=== PATIENT | male | born 1965 | race Caucasian/White ===

== ENCOUNTER 2017-12-02 00:30 | Inpatient (IN) | payer MEDICARE, OTHER ==
[2017-12-02 03:22] LABS: ADD MAN DIFF? NO
[2017-12-02 03:29] LABS: ABNORMAL IP MESSAGE 1; BASOPHIL # 0.1 10^3/ul (0.0-0.1); BASOPHILS % 0.6 % (0.0-2.0); EOSINOPHILS # 0.3 10^3/ul (0.0-0.5); HEMATOCRIT 28.1 % (42.0-52.0); LYMPHOCYTES # 1.3 10^3/ul (0.8-2.9); LYMPHOCYTES % 16.9 % (15.0-51.0); MEAN CORPUSCULAR HEMOGLOBIN 23.3 pg (29.0-33.0); MEAN CORPUSCULAR HGB CONC 28.5 g/dl (32.0-37.0); MEAN CORPUSCULAR VOLUME 81.9 fl (82.0-101.0); MEAN PLATELET VOLUME 11.8 fl (7.4-10.4); MONOCYTE # 0.8 10^3/ul (0.3-0.9); MONOCYTES % 10.1 % (0.0-11.0); NEUTROPHIL # 5.2 10^3/ul (1.6-7.5); NEUTROPHILS % 66.9 % (39.0-77.0); NUCLEATED RED BLOOD CELLS # 0.1 10^3/ul (0.0-0.0); NUCLEATED RED BLOOD CELLS% 1.3 /100WBC (0.0-0.0); PLATELET COUNT 134 10^3/UL (140-415); POSITIVE DIFF @See below; RED BLOOD COUNT 3.43 10^6/ul (4.70-6.10); RED CELL DISTRIBUTION WIDTH 19.7 % (11.5-14.5)
[2017-12-02 03:29] LABS: WHITE BLOOD COUNT 7.8 10^3/ul (4.8-10.8)
[2017-12-02 03:43] LABS: ALANINE AMINOTRANSFERASE 34 IU/L (13-69); ALBUMIN 3.4 g/dl (3.3-4.9); ALBUMIN/GLOBULIN RATIO 0.85; ALKALINE PHOSPHATASE 186 IU/L (42-121); ANION GAP 16 (8-16); ASPARTATE AMINO TRANSFERASE 35 IU/L (15-46); BILIRUBIN,INDIRECT 0.7 mg/dl (0-1.1); BILIRUBIN,TOTAL 0.7 mg/dl (0.2-1.3); BLOOD UREA NITROGEN 34 mg/dl (7-20); CALCIUM 8.3 mg/dl (8.4-10.2); CARBON DIOXIDE 30 mmol/L (21-31); CHLORIDE 112 mmol/L (97-110); CREATININE 1.26 mg/dl (0.61-1.24); GLUCOSE 107 mg/dl (70-220); POTASSIUM 4.3 mmol/L (3.5-5.1); SODIUM 154 mmol/L (135-144); TOTAL PROTEIN 7.4 g/dl (6.1-8.1)
[2017-12-02 03:54] LABS: B-TYPE NATRIURETIC PEPTIDE 4240 PG/ML (0-125); TROPONIN-I 0.046 ng/ml (0.00-0.12)
[2017-12-02] MEDS ORDERED: ONDANSETRON 4 MG INJ IV (06:30)
[2017-12-02] MEDS ORDERED: ACETAMINOPHEN 325 MG TAB PO (06:30)
[2017-12-02] MEDS ORDERED: ALBUMIN HUMAN 25% 100 ML IV (06:30)
[2017-12-02] MEDS ORDERED: morphine 2 MG INJ IV (06:30)
[2017-12-02] MEDS ORDERED: NACL 0.9% 3 ML SYG IV (06:30)
[2017-12-02 07:43] LABS: CREATINE KINASE 44 IU/L (23-200)
[2017-12-02 07:56] LABS: CK INDEX 2.6; TROPONIN-I 0.053 ng/ml (0.00-0.12)
[2017-12-02 08:02] LABS: CK-MB 1.16 ng/ml (0.0-2.4)
[2017-12-02] MEDS: ALBUMIN HUMAN 25% 100 ML IV (08:14)
[2017-12-02 08:57] LABS: FOLATE > 20.0 ng/ml (2.8-20.0)
[2017-12-02 09:00] LABS: OSMOLALITY 314 mOsm/kg (280-295)
[2017-12-02 09:15] LABS: IRON 35 ug/dl (35-150)
[2017-12-02 09:25] LABS: % IRON SATURATION 10 % SAT (22-52); TOTAL IRON BINDING CAPACITY 364 ug/dl (241-421)
[2017-12-02 09:44] LABS: IRON 33 ug/dl (35-150)
[2017-12-02 09:53] LABS: % IRON SATURATION 9 % SAT (22-52); TOTAL IRON BINDING CAPACITY 367 ug/dl (241-421)
[2017-12-02] MEDS ORDERED: DEXTROSE 50% 50 ML SYRINGE IV ×2 (10:00)
[2017-12-02] MEDS ORDERED: GLUCOSE GEL 15 GRAM TUBE PO ×2 (10:00)
[2017-12-02] MEDS ORDERED: GLUCOSE GEL 15 GRAM TUBE BUCCAL (10:00)
[2017-12-02] MEDS ORDERED: GLUCAGON 1 MG INJ IM (10:00)
[2017-12-02] MEDS ORDERED: hydrALAzine 20 MG INJ IV (10:00)
[2017-12-02] MEDS ORDERED: FUROSEMIDE 40 MG INJ IV (10:00)
[2017-12-02 10:19] LABS: FERRITIN 27.3 ng/ml (11.1-264.0)
[2017-12-02] MEDS: FUROSEMIDE 40 MG INJ IV ×2 (10:30→17:28)
[2017-12-02 10:32] LABS: ANION GAP 15 (8-16); BLOOD UREA NITROGEN 34 mg/dl (7-20); CALCIUM 8.3 mg/dl (8.4-10.2); CARBON DIOXIDE 29 mmol/L (21-31); CHLORIDE 113 mmol/L (97-110); CREATININE 1.11 mg/dl (0.61-1.24); GLUCOSE 112 mg/dl (70-220); POTASSIUM 4.2 mmol/L (3.5-5.1); SODIUM 153 mmol/L (135-144)
[2017-12-02 11:05] LABS: ADD UMIC YES; UR ASCORBIC ACID 40 mg/dL (NEGATIVE); UR BACTERIA MODERATE /HPF (NONE SEEN); UR BILIRUBIN (Dip) NEGATIVE (NEGATIVE); UR BLOOD (Dip) NEGATIVE (NEGATIVE); UR CLARITY SLIGHTLY CLOUDY (CLEAR); UR COLOR AMBER (YELLOW); UR GLUCOSE (Dip) NEGATIVE (NEGATIVE); UR KETONES (Dip) NEGATIVE (NEGATIVE); UR LEUKOCYTE ESTERASE (Dip) TRACE Leu/ul (NEGATIVE); UR MUCUS MANY /HPF (NONE SEEN); UR NITRITE (Dip) NEGATIVE (NEGATIVE); UR RBC 3 /HPF (0-5); UR SPECIFIC GRAVITY (Dip) 1.028 (1.003-1.030); UR TOTAL PROTEIN (Dip) 2+ mg/dl (NEGATIVE); UR UROBILINOGEN (Dip) 2+ mg/dL (NEGATIVE); UR WBC 12 /HPF (0-5)
[2017-12-02 11:25] LABS: OSMOLALITY,URINE 913 mOsm/kg (250-1200)
[2017-12-02 11:28] LABS: CREATININE,URINE RANDOM 195.18 mg/dl (20-370)
[2017-12-02 11:28] LABS: SODIUM,URINE RANDOM 66 mmol/L (30-90)
[2017-12-02 12:01] LABS: B-TYPE NATRIURETIC PEPTIDE 4060 PG/ML (0-125)
[2017-12-02] MEDS: APIXABAN 5 MG TABLET PO ×2 (12:24→20:38)
[2017-12-02] MEDS: GABAPENTIN 300 MG CAP PO ×2 (12:24→20:36)
[2017-12-02] MEDS: INSULIN ASPART [NOVOLOG] 3 ML PEN SC ×5 (12:26→20:51)
[2017-12-02] MEDS: METOLAZONE 5 MG TAB PO (13:02)
[2017-12-02 15:23] LABS: ANION GAP 15 (8-16); BLOOD UREA NITROGEN 29 mg/dl (7-20); CALCIUM 8.7 mg/dl (8.4-10.2); CARBON DIOXIDE 33 mmol/L (21-31); CHLORIDE 107 mmol/L (97-110); CREATINE KINASE 44 IU/L (23-200); CREATININE 1.02 mg/dl (0.61-1.24); GLUCOSE 133 mg/dl (70-220); POTASSIUM 4.4 mmol/L (3.5-5.1); SODIUM 151 mmol/L (135-144)
[2017-12-02 15:33] LABS: ADD UMIC YES; UR ASCORBIC ACID 40 mg/dL (NEGATIVE); UR BACTERIA FEW /HPF (NONE SEEN); UR BILIRUBIN (Dip) NEGATIVE (NEGATIVE); UR BLOOD (Dip) NEGATIVE (NEGATIVE); UR CLARITY SLIGHTLY CLOUDY (CLEAR); UR COLOR AMBER (YELLOW); UR GLUCOSE (Dip) NEGATIVE (NEGATIVE); UR KETONES (Dip) NEGATIVE (NEGATIVE); UR LEUKOCYTE ESTERASE (Dip) TRACE Leu/ul (NEGATIVE); UR MUCUS MANY /HPF (NONE SEEN); UR NITRITE (Dip) NEGATIVE (NEGATIVE); UR RBC 1 /HPF (0-5); UR SPECIFIC GRAVITY (Dip) 1.029 (1.003-1.030); UR TOTAL PROTEIN (Dip) 2+ mg/dl (NEGATIVE); UR UROBILINOGEN (Dip) 2+ mg/dL (NEGATIVE); UR WBC 13 /HPF (0-5)
[2017-12-02 15:35] LABS: CK INDEX 3.1
[2017-12-02 15:37] LABS: CK-MB 1.37 ng/ml (0.0-2.4)
[2017-12-02] MEDS ORDERED: METOPROLOL 5 MG INJ IV (17:00)
[2017-12-02] MEDS: DIGOXIN 500 MCG INJ IV (17:28)
[2017-12-02 18:36] LABS: TROPONIN-I 0.055 ng/ml (0.00-0.12)
[2017-12-02] MEDS: INSULIN GLARGINE [LANtus] 3 ML PEN SC (20:00)
[2017-12-02] MEDS: METOPROLOL (XL) 50 MG TAB PO (20:37)
[2017-12-02] MEDS: TAMSULOSIN (SR) 0.4 MG CAP PO (22:41)
[2017-12-02] MEDS: ATORVASTATIN 80 MG TAB PO (22:41)
[2017-12-03] MEDS: ACCU-CHEK XX (01:12)
[2017-12-03] MEDS: DIGOXIN 500 MCG INJ IV (01:26)
[2017-12-03 02:28] LABS: TROPONIN-I 0.056 ng/ml (0.00-0.12)
[2017-12-03] MEDS: FUROSEMIDE 40 MG INJ IV ×2 (05:53→17:50)
[2017-12-03] MEDS: INSULIN ASPART [NOVOLOG] 3 ML PEN SC ×7 (07:27→20:43)
[2017-12-03 08:16] LABS: ADD MAN DIFF? NO
[2017-12-03 08:29] LABS: BASOPHIL # 0.1 10^3/ul (0.0-0.1); BASOPHILS % 0.8 % (0.0-2.0); EOSINOPHILS # 0.4 10^3/ul (0.0-0.5); HEMATOCRIT 26.1 % (42.0-52.0); HEMOGLOBIN 7.7 g/dl (14.0-18.0); LYMPHOCYTES # 1.3 10^3/ul (0.8-2.9); LYMPHOCYTES % 17.8 % (15.0-51.0); MEAN CORPUSCULAR HEMOGLOBIN 23.5 pg (29.0-33.0); MEAN CORPUSCULAR HGB CONC 29.5 g/dl (32.0-37.0); MEAN CORPUSCULAR VOLUME 79.8 fl (82.0-101.0); MEAN PLATELET VOLUME 11.9 fl (7.4-10.4); MONOCYTE # 0.6 10^3/ul (0.3-0.9); MONOCYTES % 8.3 % (0.0-11.0); NEUTROPHILS % 67.3 % (39.0-77.0); NUCLEATED RED BLOOD CELLS # 0.1 10^3/ul (0.0-0.0); NUCLEATED RED BLOOD CELLS% 0.7 /100WBC (0.0-0.0); PLATELET COUNT 137 10^3/UL (140-415); RED BLOOD COUNT 3.27 10^6/ul (4.70-6.10); RED CELL DISTRIBUTION WIDTH 19.9 % (11.5-14.5)
[2017-12-03 08:29] LABS: WHITE BLOOD COUNT 7.5 10^3/ul (4.8-10.8)
[2017-12-03 08:37] LABS: HEMOGLOBIN A1C 8.8 % (0-5.9)
[2017-12-03 08:44] LABS: ALANINE AMINOTRANSFERASE 34 IU/L (13-69); ALBUMIN 3.5 g/dl (3.3-4.9); ALKALINE PHOSPHATASE 172 IU/L (42-121); ANION GAP 14 (8-16); ASPARTATE AMINO TRANSFERASE 33 IU/L (15-46); BLOOD UREA NITROGEN 27 mg/dl (7-20); CALCIUM 8.9 mg/dl (8.4-10.2); CARBON DIOXIDE 34 mmol/L (21-31); CHLORIDE 102 mmol/L (97-110); GLUCOSE 153 mg/dl (70-220); MAGNESIUM 2.1 mg/dl (1.7-2.5); POTASSIUM 4.1 mmol/L (3.5-5.1); SODIUM 146 mmol/L (135-144)
[2017-12-03 08:46] LABS: CHOL/HDL RATIO 7.1 RATIO; HDL CHOLESTEROL 17 mg/dl (28-71); LDL CHOLESTEROL,CALCULATED 81 mg/dl; TRIGLYCERIDES 115 mg/dl (0-149)
[2017-12-03 08:46] LABS: CHOLESTEROL 121 mg/dl (100-200)
[2017-12-03 08:57] LABS: FREE T4 (FREE THYROXINE) 1.17 ng/dl (0.64-1.79)
[2017-12-03] MEDS ORDERED: METOPROLOL (XL) 50 MG TAB PO (09:00)
[2017-12-03] MEDS ORDERED: ASPIRIN (EC) 81 MG TAB PO (09:00)
[2017-12-03] MEDS: MULTIVITAMINS THERAPEUTIC TAB PO (09:05)
[2017-12-03] MEDS: GABAPENTIN 300 MG CAP PO ×4 (09:05→20:37)
[2017-12-03] MEDS: METOPROLOL (XL) 50 MG TAB PO ×2 (09:06→20:39)
[2017-12-03] MEDS: CLOPIDOGREL 75 MG TAB PO (09:06)
[2017-12-03] MEDS: ISOSORBIDE MONONITRATE(SR)30 MG TAB PO (09:06)
[2017-12-03] MEDS: APIXABAN 5 MG TABLET PO ×2 (09:06→20:37)
[2017-12-03] MEDS: AMLODIPINE 10 MG TAB PO (09:07)
[2017-12-03 15:07] LABS: CREATININE, RANDOM URINE 211 mg/dL (20-370); MICROALBUMIN 56.1 mg/dL; MICROALBUMIN/CREATININE RATIO 266 (<30)
[2017-12-03] MEDS: SOD FERRIC GLUC COMPLX 125 MG in SOD CHLORIDE 0.9% 100 ML IVPB (17:45)
[2017-12-03] MEDS: CEFTRIAXONE 1 GM/50 ML (PMX) 50 ML IVPB (18:44)
[2017-12-03] MEDS: ATORVASTATIN 80 MG TAB PO (20:37)
[2017-12-03] MEDS: TAMSULOSIN (SR) 0.4 MG CAP PO (20:37)
[2017-12-03] MEDS: INSULIN GLARGINE [LANtus] 3 ML PEN SC (20:43)
[2017-12-03] MEDS ORDERED: ALBUMIN HUMAN 25% 100 ML IV (23:30)
[2017-12-04] MEDS: ACCU-CHEK XX (01:21)
[2017-12-04] MEDS: BENZONATATE 100 MG CAP PO (01:23)
[2017-12-04] MEDS: FUROSEMIDE 40 MG INJ IV ×2 (05:28→17:12)
[2017-12-04] MEDS: INSULIN ASPART [NOVOLOG] 3 ML PEN SC ×7 (08:32→21:23)
[2017-12-04] MEDS: APIXABAN 5 MG TABLET PO ×2 (08:33→21:15)
[2017-12-04] MEDS: CLOPIDOGREL 75 MG TAB PO (08:34)
[2017-12-04] MEDS: MULTIVITAMINS THERAPEUTIC TAB PO (08:34)
[2017-12-04] MEDS: GABAPENTIN 300 MG CAP PO ×3 (08:34→21:15)
[2017-12-04] MEDS: METOPROLOL (XL) 50 MG TAB PO ×2 (08:34→21:17)
[2017-12-04] MEDS: AMLODIPINE 5 MG TAB PO (08:34)
[2017-12-04 09:04] LABS: ADD MAN DIFF? NO
[2017-12-04 09:08] LABS: WHITE BLOOD COUNT 7.8 10^3/ul (4.8-10.8)
[2017-12-04 09:08] LABS: BASOPHIL # 0.1 10^3/ul (0.0-0.1); EOSINOPHILS # 0.3 10^3/ul (0.0-0.5); EOSINOPHILS % 3.8 % (0.0-7.0); HEMOGLOBIN 8.2 g/dl (14.0-18.0); LYMPHOCYTES # 1.9 10^3/ul (0.8-2.9); LYMPHOCYTES % 24.2 % (15.0-51.0); MEAN CORPUSCULAR HGB CONC 30.4 g/dl (32.0-37.0); MEAN CORPUSCULAR VOLUME 78.9 fl (82.0-101.0); MEAN PLATELET VOLUME 11.1 fl (7.4-10.4); MONOCYTE # 0.6 10^3/ul (0.3-0.9); MONOCYTES % 7.7 % (0.0-11.0); NEUTROPHIL # 4.9 10^3/ul (1.6-7.5); NEUTROPHILS % 62.2 % (39.0-77.0); NUCLEATED RED BLOOD CELLS% 0.5 /100WBC (0.0-0.0); PLATELET COUNT 150 10^3/UL (140-415); RED BLOOD COUNT 3.42 10^6/ul (4.70-6.10)
[2017-12-04 09:27] LABS: PHOSPHORUS 4.8 mg/dl (2.5-4.9)
[2017-12-04 09:35] LABS: ANION GAP 16 (8-16); BLOOD UREA NITROGEN 31 mg/dl (7-20); CALCIUM 9.4 mg/dl (8.4-10.2); CARBON DIOXIDE 34 mmol/L (21-31); CHLORIDE 100 mmol/L (97-110); CREATININE 1.09 mg/dl (0.61-1.24); GLUCOSE 190 mg/dl (70-220); POTASSIUM 3.9 mmol/L (3.5-5.1); SODIUM 146 mmol/L (135-144)
[2017-12-04] MEDS: CEFTRIAXONE 1 GM/50 ML (PMX) 50 ML IVPB (16:22)
[2017-12-04] MEDS: SOD FERRIC GLUC COMPLX 125 MG in SOD CHLORIDE 0.9% 100 ML IVPB (17:12)
[2017-12-04] MEDS: INSULIN GLARGINE [LANtus] 3 ML PEN SC (21:14)
[2017-12-04] MEDS: TAMSULOSIN (SR) 0.4 MG CAP PO (21:15)
[2017-12-04] MEDS: ATORVASTATIN 80 MG TAB PO (21:15)
[2017-12-05] MEDS: ACCU-CHEK XX (02:13)
[2017-12-05] MEDS: FUROSEMIDE 40 MG INJ IV ×2 (05:11→16:54)
[2017-12-05 07:26] LABS: ADD MAN DIFF? NO
[2017-12-05 07:37] LABS: WHITE BLOOD COUNT 7.3 10^3/ul (4.8-10.8)
[2017-12-05 07:37] LABS: BASOPHIL # 0.1 10^3/ul (0.0-0.1); BASOPHILS % 0.8 % (0.0-2.0); EOSINOPHILS # 0.2 10^3/ul (0.0-0.5); EOSINOPHILS % 2.6 % (0.0-7.0); HEMATOCRIT 26.8 % (42.0-52.0); LYMPHOCYTES # 1.2 10^3/ul (0.8-2.9); LYMPHOCYTES % 16.4 % (15.0-51.0); MEAN CORPUSCULAR HEMOGLOBIN 23.8 pg (29.0-33.0); MEAN CORPUSCULAR HGB CONC 29.9 g/dl (32.0-37.0); MEAN CORPUSCULAR VOLUME 79.8 fl (82.0-101.0); MEAN PLATELET VOLUME 12.3 fl (7.4-10.4); MONOCYTE # 0.7 10^3/ul (0.3-0.9); MONOCYTES % 8.9 % (0.0-11.0); NEUTROPHIL # 5.1 10^3/ul (1.6-7.5); NEUTROPHILS % 69.9 % (39.0-77.0); NUCLEATED RED BLOOD CELLS% 0.5 /100WBC (0.0-0.0); PLATELET COUNT 142 10^3/UL (140-415); RED BLOOD COUNT 3.36 10^6/ul (4.70-6.10); RED CELL DISTRIBUTION WIDTH 20.1 % (11.5-14.5)
[2017-12-05 07:53] LABS: ANION GAP 13 (8-16); BLOOD UREA NITROGEN 34 mg/dl (7-20); CALCIUM 9.4 mg/dl (8.4-10.2); CARBON DIOXIDE 36 mmol/L (21-31); CHLORIDE 99 mmol/L (97-110); CREATININE 1.25 mg/dl (0.61-1.24); GLUCOSE 293 mg/dl (70-220); MAGNESIUM 1.8 mg/dl (1.7-2.5); PHOSPHORUS 4.4 mg/dl (2.5-4.9); SODIUM 144 mmol/L (135-144)
[2017-12-05] MEDS: MULTIVITAMINS THERAPEUTIC TAB PO (08:11)
[2017-12-05] MEDS: GABAPENTIN 300 MG CAP PO ×3 (08:11→21:41)
[2017-12-05] MEDS: APIXABAN 5 MG TABLET PO ×2 (08:11→21:41)
[2017-12-05] MEDS: BENAZEPRIL 10 MG TAB PO (08:11)
[2017-12-05] MEDS: CLOPIDOGREL 75 MG TAB PO (08:11)
[2017-12-05] MEDS: METOPROLOL (XL) 50 MG TAB PO ×2 (08:11→21:42)
[2017-12-05] MEDS: INSULIN ASPART [NOVOLOG] 3 ML PEN SC ×7 (08:12→21:45)
[2017-12-05] MEDS: CEFTRIAXONE 1 GM/50 ML (PMX) 50 ML IVPB (16:08)
[2017-12-05] MEDS: MAGNESIUM SULFATE 2 GM/50 ML 50 ML IVPB (16:46)
[2017-12-05] MEDS: SOD FERRIC GLUC COMPLX 125 MG in SOD CHLORIDE 0.9% 100 ML IVPB (17:00)
[2017-12-05] MEDS: ATORVASTATIN 80 MG TAB PO (21:41)
[2017-12-05] MEDS: TAMSULOSIN (SR) 0.4 MG CAP PO (21:41)
[2017-12-05] MEDS: INSULIN GLARGINE [LANtus] 3 ML PEN SC (21:44)
[2017-12-06] MEDS: ACCU-CHEK XX (02:00)
[2017-12-06] MEDS: FUROSEMIDE 40 MG INJ IV ×2 (05:36→18:00)
[2017-12-06 07:01] LABS: ADD MAN DIFF? NO
[2017-12-06 07:08] LABS: WHITE BLOOD COUNT 7.8 10^3/ul (4.8-10.8)
[2017-12-06 07:08] LABS: BASOPHIL # 0.1 10^3/ul (0.0-0.1); BASOPHILS % 0.9 % (0.0-2.0); EOSINOPHILS # 0.4 10^3/ul (0.0-0.5); EOSINOPHILS % 4.6 % (0.0-7.0); HEMATOCRIT 28.3 % (42.0-52.0); HEMOGLOBIN 8.5 g/dl (14.0-18.0); LYMPHOCYTES # 1.5 10^3/ul (0.8-2.9); LYMPHOCYTES % 19.8 % (15.0-51.0); MEAN CORPUSCULAR HEMOGLOBIN 24.1 pg (29.0-33.0); MEAN CORPUSCULAR VOLUME 80.2 fl (82.0-101.0); MEAN PLATELET VOLUME 10.6 fl (7.4-10.4); MONOCYTE # 0.7 10^3/ul (0.3-0.9); MONOCYTES % 9.2 % (0.0-11.0); NEUTROPHIL # 4.9 10^3/ul (1.6-7.5); NEUTROPHILS % 63.3 % (39.0-77.0); NUCLEATED RED BLOOD CELLS% 0.5 /100WBC (0.0-0.0); PLATELET COUNT 132 10^3/UL (140-415); RED BLOOD COUNT 3.53 10^6/ul (4.70-6.10); RED CELL DISTRIBUTION WIDTH 20.4 % (11.5-14.5)
[2017-12-06 07:27] LABS: MAGNESIUM 1.8 mg/dl (1.7-2.5)
[2017-12-06 07:27] LABS: PHOSPHORUS 3.4 mg/dl (2.5-4.9)
[2017-12-06 07:33] LABS: BLOOD UREA NITROGEN 28 mg/dl (7-20); CALCIUM 9.4 mg/dl (8.4-10.2); CARBON DIOXIDE 38 mmol/L (21-31); CHLORIDE 100 mmol/L (97-110); CREATININE 1.08 mg/dl (0.61-1.24); GLUCOSE 153 mg/dl (70-220); SODIUM 150 mmol/L (135-144)
[2017-12-06 07:41] LABS: ANION GAP 15 (8-16)
[2017-12-06 07:43] LABS: POTASSIUM 3.3 mmol/L (3.5-5.1)
[2017-12-06] MEDS: BENAZEPRIL 10 MG TAB PO (08:56)
[2017-12-06] MEDS: MULTIVITAMINS THERAPEUTIC TAB PO (08:57)
[2017-12-06] MEDS: CLOPIDOGREL 75 MG TAB PO (08:57)
[2017-12-06] MEDS: METOPROLOL (XL) 50 MG TAB PO ×2 (08:57→20:38)
[2017-12-06] MEDS: APIXABAN 5 MG TABLET PO ×2 (08:58→20:34)
[2017-12-06] MEDS: LINAGLIPTIN 5 MG TABLET PO (08:58)
[2017-12-06] MEDS: GABAPENTIN 300 MG CAP PO ×3 (08:58→20:33)
[2017-12-06] MEDS: INSULIN ASPART [NOVOLOG] 3 ML PEN SC ×7 (09:00→21:00)
[2017-12-06] MEDS: POTASSIUM CHLORIDE (SR) 10 MEQ TAB PO (13:03)
[2017-12-06] MEDS: GUAIFENESIN/DM 5ML CUP PO (15:21)
[2017-12-06] MEDS: CEFTRIAXONE 1 GM/50 ML (PMX) 50 ML IVPB (16:26)
[2017-12-06] MEDS: SOD FERRIC GLUC COMPLX 125 MG in SOD CHLORIDE 0.9% 100 ML IVPB (17:07)
[2017-12-06] MEDS: TAMSULOSIN (SR) 0.4 MG CAP PO (20:34)
[2017-12-06] MEDS: ATORVASTATIN 80 MG TAB PO (20:34)
[2017-12-06] MEDS: INSULIN GLARGINE [LANtus] 3 ML PEN SC (20:37)
[2017-12-07] MEDS: ACCU-CHEK XX (02:00)
[2017-12-07] MEDS: FUROSEMIDE 40 MG INJ IV (05:36)
[2017-12-07 07:38] LABS: ADD MAN DIFF? NO
[2017-12-07 07:42] LABS: WHITE BLOOD COUNT 8.9 10^3/ul (4.8-10.8)
[2017-12-07 07:42] LABS: ABNORMAL IP MESSAGE 1; BASOPHIL # 0.1 10^3/ul (0.0-0.1); BASOPHILS % 0.7 % (0.0-2.0); EOSINOPHILS # 0.2 10^3/ul (0.0-0.5); EOSINOPHILS % 2.6 % (0.0-7.0); HEMATOCRIT 27.9 % (42.0-52.0); HEMOGLOBIN 8.3 g/dl (14.0-18.0); LYMPHOCYTES # 1.6 10^3/ul (0.8-2.9); LYMPHOCYTES % 18.2 % (15.0-51.0); MEAN CORPUSCULAR HEMOGLOBIN 24.3 pg (29.0-33.0); MEAN CORPUSCULAR HGB CONC 29.7 g/dl (32.0-37.0); MEAN CORPUSCULAR VOLUME 81.6 fl (82.0-101.0); MEAN PLATELET VOLUME 11.9 fl (7.4-10.4); MONOCYTE # 0.7 10^3/ul (0.3-0.9); MONOCYTES % 8.1 % (0.0-11.0); NEUTROPHIL # 6.1 10^3/ul (1.6-7.5); NEUTROPHILS % 68.8 % (39.0-77.0); NUCLEATED RED BLOOD CELLS% 0.3 /100WBC (0.0-0.0); PLATELET COUNT 140 10^3/UL (140-415); POSITIVE DIFF @See below; RED BLOOD COUNT 3.42 10^6/ul (4.70-6.10)
[2017-12-07 08:03] LABS: BLOOD UREA NITROGEN 31 mg/dl (7-20); CALCIUM 9.2 mg/dl (8.4-10.2); CARBON DIOXIDE 39 mmol/L (21-31); CHLORIDE 100 mmol/L (97-110); CREATININE 1.05 mg/dl (0.61-1.24); GLUCOSE 182 mg/dl (70-220); SODIUM 149 mmol/L (135-144)
[2017-12-07 08:04] LABS: ANION GAP 14 (8-16); POTASSIUM 3.8 mmol/L (3.5-5.1)
[2017-12-07] MEDS: GABAPENTIN 300 MG CAP PO ×2 (08:04→13:56)
[2017-12-07] MEDS: BENZONATATE 100 MG CAP PO (08:04)
[2017-12-07] MEDS: METOPROLOL (XL) 50 MG TAB PO (08:04)
[2017-12-07] MEDS: BENAZEPRIL 10 MG TAB PO (08:05)
[2017-12-07] MEDS: CLOPIDOGREL 75 MG TAB PO (08:05)
[2017-12-07] MEDS: APIXABAN 5 MG TABLET PO (08:06)
[2017-12-07] MEDS: LINAGLIPTIN 5 MG TABLET PO (08:06)
[2017-12-07] MEDS: MULTIVITAMINS THERAPEUTIC TAB PO (08:06)
[2017-12-07 08:08] LABS: PHOSPHORUS 3.2 mg/dl (2.5-4.9)
[2017-12-07 08:08] LABS: MAGNESIUM 1.7 mg/dl (1.7-2.5)
[2017-12-07] MEDS: INSULIN ASPART [NOVOLOG] 3 ML PEN SC ×4 (08:08→12:47)
[2017-12-07] MEDS: SOD CHLORIDE 0.45% 1,000 ML IV (11:00)
[2017-12-07] MEDS ORDERED: INSULIN GLARGINE [LANtus] 3 ML PEN SC (20:00)
== END 2017-12-07 16:28 | disposition home or self-care (01) | DRG 682 ==
LOC: MS4 12-03 01:00 → E/R 00:30 → MS3 05:16 → TEL 10:46 → MS3 10:55
DX: N17.9 Acute kidney failure, unspecified (principal); I50.23 Acute on chronic systolic (congestive) heart failure; E87.0 Hyperosmolality and hypernatremia; I48.92 Unspecified atrial flutter; N39.0 Urinary tract infection, site not specified; I11.0 Hypertensive heart disease with heart failure; I27.20 Pulmonary hypertension, unspecified; E11.9 Type 2 diabetes mellitus without complications; D50.9 Iron deficiency anemia, unspecified; E78.5 Hyperlipidemia, unspecified; I25.10 Atherosclerotic heart disease of native coronary artery without angina pectoris; I48.0 Paroxysmal atrial fibrillation; Z95.1 Presence of aortocoronary bypass graft; I25.5 Ischemic cardiomyopathy; Z89.432 Acquired absence of left foot; Z95.5 Presence of coronary angioplasty implant and graft; Z86.73 Personal history of transient ischemic attack (TIA), and cerebral infarction without residual deficits; I44.4 Left anterior fascicular block; I36.1 Nonrheumatic tricuspid (valve) insufficiency
CPT/HCPCS: 36415; 71045; 76775; 80048; 80053; 80061; 81001; 81003; 82043; 82550; 82553; 82607; 82728; 82746; 82962; 83036; 83540; 83735; 83880; 83930; 83935; 84100; 84155; 84300; 84439; 84443; 84484; 85025; 87086; 93005; 93306; 99285-25

== ENCOUNTER 2018-05-14 20:00 | Inpatient (IN) | payer MEDICARE, OTHER ==
[2018-05-14] MEDS: SODIUM CHLORIDE 0.9% 1L BAG IV* (21:11)
[2018-05-14 21:16] LABS: ADD MAN DIFF? NO
[2018-05-14 21:19] LABS: WHITE BLOOD COUNT 10.1 10^3/ul (4.8-10.8)
[2018-05-14 21:19] LABS: BASOPHIL # 0.1 10^3/ul (0.0-0.1); BASOPHILS % 0.5 % (0.0-2.0); EOSINOPHILS # 0.1 10^3/ul (0.0-0.5); EOSINOPHILS % 0.5 % (0.0-7.0); HEMATOCRIT 37.4 % (42.0-52.0); HEMOGLOBIN 11.7 g/dl (14.0-18.0); LYMPHOCYTES # 1.3 10^3/ul (0.8-2.9); LYMPHOCYTES % 13.1 % (15.0-51.0); MEAN CORPUSCULAR HEMOGLOBIN 29.2 pg (29.0-33.0); MEAN CORPUSCULAR HGB CONC 31.3 g/dl (32.0-37.0); MEAN CORPUSCULAR VOLUME 93.3 fl (82.0-101.0); MEAN PLATELET VOLUME 10.4 fl (7.4-10.4); MONOCYTE # 0.6 10^3/ul (0.3-0.9); MONOCYTES % 6.3 % (0.0-11.0); NEUTROPHIL # 7.8 10^3/ul (1.6-7.5); NEUTROPHILS % 77.2 % (39.0-77.0); PLATELET COUNT 185 10^3/UL (140-415); RED BLOOD COUNT 4.01 10^6/ul (4.70-6.10); RED CELL DISTRIBUTION WIDTH 16.7 % (11.5-14.5)
[2018-05-14 21:28] LABS: ADD UMIC YES; UR ASCORBIC ACID NEGATIVE (NEGATIVE); UR BACTERIA FEW /HPF (NONE SEEN); UR BILIRUBIN (Dip) NEGATIVE (NEGATIVE); UR BLOOD (Dip) NEGATIVE (NEGATIVE); UR CLARITY CLOUDY (CLEAR); UR COLOR YELLOW (YELLOW); UR GLUCOSE (Dip) 3+ mg/dL (NEGATIVE); UR HYALINE CAST FEW /HPF (NONE SEEN); UR KETONES (Dip) NEGATIVE (NEGATIVE); UR LEUKOCYTE ESTERASE (Dip) NEGATIVE Leu/ul (NEGATIVE); UR MUCUS FEW /HPF (NONE SEEN); UR NITRITE (Dip) NEGATIVE (NEGATIVE); UR RBC 1 /HPF (0-5); UR SQUAMOUS EPITHELIAL CELL FEW /HPF (FEW); UR TOTAL PROTEIN (Dip) 2+ mg/dl (NEGATIVE); UR UROBILINOGEN (Dip) NEGATIVE (NEGATIVE); UR WBC 4 /HPF (0-5)
[2018-05-14 21:41] LABS: LACTIC ACID 1.9 mmol/L (0.5-2.0)
[2018-05-14 21:41] LABS: ALANINE AMINOTRANSFERASE 52 IU/L (13-69); ALBUMIN 3.8 g/dl (3.3-4.9); ALBUMIN/GLOBULIN RATIO 1.11; ALKALINE PHOSPHATASE 108 IU/L (42-121); ANION GAP 17 (8-16); ASPARTATE AMINO TRANSFERASE 44 IU/L (15-46); BLOOD UREA NITROGEN 49 mg/dl (7-20); CARBON DIOXIDE 26 mmol/L (21-31); CHLORIDE 105 mmol/L (97-110); GLUCOSE 338 mg/dl (70-220); POTASSIUM 5.2 mmol/L (3.5-5.1); SODIUM 143 mmol/L (135-144); TOTAL PROTEIN 7.2 g/dl (6.1-8.1)
[2018-05-14 21:44] LABS: INR 1.23; PROTIME 15.7 Sec (11.9-14.9); PT RATIO 1.2
[2018-05-14 21:45] LABS: PARTIAL THROMBOPLASTIN TIME 28.4 Sec (25.0-35.0)
[2018-05-14 21:52] LABS: TROPONIN-I 0.021 ng/ml (0.000-0.120)
[2018-05-14] MEDS ORDERED: ACETAMINOPHEN 325 MG TAB PO (22:00)
[2018-05-14] MEDS ORDERED: ONDANSETRON 4 MG INJ IV (22:00)
[2018-05-14 23:47] LABS: LACTIC ACID 1.2 mmol/L (0.5-2.0)
[2018-05-15 03:26] LABS: LACTIC ACID 1.4 mmol/L (0.5-2.0)
[2018-05-15] MEDS ORDERED: GLUCAGON 1 MG INJ IM (05:00)
[2018-05-15] MEDS ORDERED: DEXTROSE 50% 50 ML SYRINGE IV ×2 (05:00)
[2018-05-15] MEDS ORDERED: GLUCOSE GEL 15 GRAM TUBE PO ×2 (05:00)
[2018-05-15] MEDS ORDERED: ACETAMINOPHEN 325 MG TAB PO (05:00)
[2018-05-15] MEDS ORDERED: GLUCOSE GEL 15 GRAM TUBE BUCCAL (05:00)
[2018-05-15] MEDS: SOD CHLORIDE 0.9% 1,000 ML IV ×2 (05:22→16:50)
[2018-05-15 06:14] LABS: ADD MAN DIFF? NO
[2018-05-15 06:28] LABS: WHITE BLOOD COUNT 9.2 10^3/ul (4.8-10.8)
[2018-05-15 06:28] LABS: BASOPHILS % 0.3 % (0.0-2.0); EOSINOPHILS # 0.2 10^3/ul (0.0-0.5); EOSINOPHILS % 1.7 % (0.0-7.0); HEMATOCRIT 34.5 % (42.0-52.0); HEMOGLOBIN 10.8 g/dl (14.0-18.0); LYMPHOCYTES # 1.7 10^3/ul (0.8-2.9); MEAN CORPUSCULAR HEMOGLOBIN 28.8 pg (29.0-33.0); MEAN CORPUSCULAR HGB CONC 31.3 g/dl (32.0-37.0); MEAN PLATELET VOLUME 10.4 fl (7.4-10.4); MONOCYTE # 0.7 10^3/ul (0.3-0.9); MONOCYTES % 7.2 % (0.0-11.0); NEUTROPHIL # 6.6 10^3/ul (1.6-7.5); NEUTROPHILS % 71.6 % (39.0-77.0); PLATELET COUNT 140 10^3/UL (140-415); RED BLOOD COUNT 3.75 10^6/ul (4.70-6.10); RED CELL DISTRIBUTION WIDTH 16.6 % (11.5-14.5)
[2018-05-15 06:37] LABS: HEMOGLOBIN A1C 8.7 % (0-5.9)
[2018-05-15 06:49] LABS: ANION GAP 13 (8-16); BLOOD UREA NITROGEN 35 mg/dl (7-20); CALCIUM 8.6 mg/dl (8.4-10.2); CARBON DIOXIDE 30 mmol/L (21-31); CHLORIDE 109 mmol/L (97-110); CHOLESTEROL 104 mg/dl (100-200); GLUCOSE 176 mg/dl (70-220); HDL CHOLESTEROL 26 mg/dl (28-71); LDL CHOLESTEROL,CALCULATED 52 mg/dl; POTASSIUM 4.3 mmol/L (3.5-5.1); SODIUM 148 mmol/L (135-144); TRIGLYCERIDES 128 mg/dl (0-149)
[2018-05-15 06:57] LABS: TROPONIN-I 0.043 ng/ml (0.000-0.120)
[2018-05-15 07:16] LABS: THYROID STIMULATING HORMONE 0.463 MIU/L (0.465-4.680)
[2018-05-15] MEDS: INSULIN ASPART [NOVOLOG] 3 ML PEN SC ×4 (07:55→20:15)
[2018-05-15] MEDS: MULTIVITAMINS THERAPEUTIC TAB PO (10:13)
[2018-05-15] MEDS: FERROUS SULFATE (EC) 325 MG TAB PO ×2 (10:13→20:12)
[2018-05-15] MEDS: APIXABAN 5 MG TABLET PO ×2 (10:13→20:12)
[2018-05-15] MEDS ORDERED: hydrALAzine 20 MG INJ IV (11:30)
[2018-05-15] MEDS: AMLODIPINE 5 MG TAB PO ×2 (11:51→20:13)
[2018-05-15] MEDS: ATORVASTATIN 80 MG TAB PO (20:12)
[2018-05-16] MEDS: SOD CHLORIDE 0.9% 1,000 ML IV ×2 (01:00→03:44)
[2018-05-16] MEDS: ACCUCHECK AT 2AM (Patients on SS coverage) XX (02:00)
[2018-05-16] MEDS: INSULIN ASPART [NOVOLOG] 3 ML PEN SC ×2 (07:32→11:16)
[2018-05-16] MEDS: AMLODIPINE 5 MG TAB PO (08:31)
[2018-05-16] MEDS: APIXABAN 5 MG TABLET PO (08:31)
[2018-05-16] MEDS: FERROUS SULFATE (EC) 325 MG TAB PO (08:31)
[2018-05-16] MEDS: MULTIVITAMINS THERAPEUTIC TAB PO (08:31)
[2018-05-16 15:13] LABS: ALANINE AMINOTRANSFERASE 71 IU/L (13-69); ALBUMIN 3.6 g/dl (3.3-4.9); ALBUMIN/GLOBULIN RATIO 0.94; ALKALINE PHOSPHATASE 120 IU/L (42-121); ANION GAP 10 (8-16); ASPARTATE AMINO TRANSFERASE 61 IU/L (15-46); BILIRUBIN,INDIRECT 1.1 mg/dl (0-1.1); BILIRUBIN,TOTAL 1.1 mg/dl (0.2-1.3); BLOOD UREA NITROGEN 21 mg/dl (7-20); CALCIUM 9.1 mg/dl (8.4-10.2); CARBON DIOXIDE 28 mmol/L (21-31); CHLORIDE 107 mmol/L (97-110); CREATININE 1.02 mg/dl (0.61-1.24); POTASSIUM 4.2 mmol/L (3.5-5.1); SODIUM 141 mmol/L (135-144); TOTAL PROTEIN 7.4 g/dl (6.1-8.1)
[2018-05-16 15:17] LABS: GLUCOSE 232 mg/dl (70-220)
== END 2018-05-16 16:05 | disposition home or self-care (01) | DRG 312 ==
LOC: TEL 21:59 → E/R 20:00
PROVIDERS: Internal Medicine
DX: I95.2 Hypotension due to drugs (principal); N17.9 Acute kidney failure, unspecified; T44.7X5A Adverse effect of beta-adrenoreceptor antagonists, initial encounter; E11.22 Type 2 diabetes mellitus with diabetic chronic kidney disease; I25.10 Atherosclerotic heart disease of native coronary artery without angina pectoris; I25.5 Ischemic cardiomyopathy; I48.91 Unspecified atrial fibrillation; I12.9 Hypertensive chronic kidney disease with stage 1 through stage 4 chronic kidney disease, or unspecified chronic kidney disease; N18.9 Chronic kidney disease, unspecified; N40.0 Benign prostatic hyperplasia without lower urinary tract symptoms; E78.5 Hyperlipidemia, unspecified; Z86.73 Personal history of transient ischemic attack (TIA), and cerebral infarction without residual deficits; Z89.422 Acquired absence of other left toe(s); Z95.1 Presence of aortocoronary bypass graft; Z95.5 Presence of coronary angioplasty implant and graft; Z79.02 Long term (current) use of antithrombotics/antiplatelets; Z79.4 Long term (current) use of insulin
CPT/HCPCS: 36415; 71045; 80048; 80053; 80061; 81001; 82962; 83036; 83605; 84443; 84484; 85025; 85610; 85730; 87040; 87086; 93005; 97161; 99291-25

== ENCOUNTER 2018-09-17 19:49 | Inpatient (IN) | payer MEDICARE, OTHER ==
[2018-09-17 22:42] LABS: ADD MAN DIFF? NO
[2018-09-17 22:43] LABS: BASOPHILS % 0.2 % (0.0-2.0); EOSINOPHILS # 0.1 10^3/ul (0.0-0.5); EOSINOPHILS % 1.3 % (0.0-7.0); HEMATOCRIT 24.2 % (42.0-52.0); HEMOGLOBIN 7.2 g/dl (14.0-18.0); LYMPHOCYTES # 0.8 10^3/ul (0.8-2.9); LYMPHOCYTES % 8.3 % (15.0-51.0); MEAN CORPUSCULAR HEMOGLOBIN 28.6 pg (29.0-33.0); MEAN CORPUSCULAR HGB CONC 29.8 g/dl (32.0-37.0); MONOCYTES % 9.6 % (0.0-11.0); NEUTROPHIL # 7.9 10^3/ul (1.6-7.5); NEUTROPHILS % 79.8 % (39.0-77.0); NUCLEATED RED BLOOD CELLS # 0.1 10^3/ul (0.0-0.0); NUCLEATED RED BLOOD CELLS% 0.7 /100WBC (0.0-0.0); PLATELET COUNT 115 10^3/UL (140-415); RED BLOOD COUNT 2.52 10^6/ul (4.70-6.10); RED CELL DISTRIBUTION WIDTH 17.4 % (11.5-14.5)
[2018-09-17 22:43] LABS: WHITE BLOOD COUNT 9.9 10^3/ul (4.8-10.8)
[2018-09-17] MEDS: PIPER-TAZO 3.375 GM IV (PMX) 100 ML IVPB (22:53)
[2018-09-17 23:03] LABS: INR 1.23; PROTIME 15.6 Sec (11.9-14.9); PT RATIO 1.2
[2018-09-17 23:04] LABS: PARTIAL THROMBOPLASTIN TIME 34.7 Sec (23.0-35.0)
[2018-09-17 23:06] LABS: ALANINE AMINOTRANSFERASE 75 IU/L (13-69); ALBUMIN 3.5 g/dl (3.3-4.9); ALBUMIN/GLOBULIN RATIO 0.97; ALKALINE PHOSPHATASE 186 IU/L (42-121); ANION GAP 9 (5-13); ASPARTATE AMINO TRANSFERASE 57 IU/L (15-46); BILIRUBIN,INDIRECT 1.1 mg/dl (0-1.1); BILIRUBIN,TOTAL 1.1 mg/dl (0.2-1.3); BLOOD UREA NITROGEN 36 mg/dl (7-20); CALCIUM 8.3 mg/dl (8.4-10.2); CARBON DIOXIDE 30 mmol/L (21-31); CHLORIDE 103 mmol/L (97-110); CREATININE 1.65 mg/dl (0.61-1.24); Estimated GFR 44 mL/min (>60); GLUCOSE 222 mg/dl (70-220); SODIUM 142 mmol/L (135-144); TOTAL PROTEIN 7.1 g/dl (6.1-8.1)
[2018-09-17 23:17] LABS: TROPONIN-I 0.083 ng/ml (0.000-0.120)
[2018-09-17] MEDS: VANCOMYCIN 1 GM (PMX) 250 ML IVPB (23:22)
[2018-09-17 23:44] LABS: ADD UMIC YES; UR ASCORBIC ACID NEGATIVE (NEGATIVE); UR BACTERIA FEW /HPF (NONE SEEN); UR BILIRUBIN (Dip) NEGATIVE (NEGATIVE); UR BLOOD (Dip) 2+ mg/dL (NEGATIVE); UR CLARITY CLEAR (CLEAR); UR COLOR YELLOW (YELLOW); UR GLUCOSE (Dip) NEGATIVE (NEGATIVE); UR HYALINE CAST FEW /HPF (NONE SEEN); UR KETONES (Dip) NEGATIVE (NEGATIVE); UR LEUKOCYTE ESTERASE (Dip) NEGATIVE Leu/ul (NEGATIVE); UR MUCUS FEW /HPF (NONE SEEN); UR NITRITE (Dip) NEGATIVE (NEGATIVE); UR RBC 1 /HPF (0-5); UR SPECIFIC GRAVITY (Dip) 1.014 (1.003-1.030); UR TOTAL PROTEIN (Dip) 2+ mg/dl (NEGATIVE); UR UROBILINOGEN (Dip) 2+ mg/dL (NEGATIVE); UR WBC 1 /HPF (0-5)
[2018-09-18 03:37] LABS: LACTIC ACID 1.2 mmol/L (0.5-2.0)
[2018-09-18] MEDS ORDERED: ONDANSETRON 4 MG INJ IV ×2 (04:30)
[2018-09-18] MEDS ORDERED: NITROGLYCERIN (SL) 0.4 MG TAB SL (04:30)
[2018-09-18] MEDS ORDERED: DOCUSATE SODIUM 100 MG CAP PO (04:30)
[2018-09-18] MEDS ORDERED: ACETAMINOPHEN 325 MG TAB PO ×2 (04:30)
[2018-09-18] MEDS ORDERED: NACL 0.9% 3 ML SYG IV (04:30)
[2018-09-18] MEDS ORDERED: ALBUTEROL/IPRATROPIUM (NEB) 3 ML AMP HHN (04:30)
[2018-09-18] MEDS ORDERED: HYDROCODONE/APAP (5/325) TAB PO (04:30)
[2018-09-18] MEDS ORDERED: DEXTROSE 50% 50 ML SYRINGE IV ×2 (04:45)
[2018-09-18] MEDS ORDERED: GLUCAGON 1 MG INJ IM (04:45)
[2018-09-18] MEDS ORDERED: GLUCOSE GEL 15 GRAM TUBE BUCCAL (04:45)
[2018-09-18] MEDS ORDERED: GLUCOSE GEL 15 GRAM TUBE PO ×2 (04:45)
[2018-09-18 06:10] LABS: ADD MAN DIFF? NO
[2018-09-18 06:24] LABS: WHITE BLOOD COUNT 7.9 10^3/ul (4.8-10.8)
[2018-09-18 06:24] LABS: ABNORMAL IP MESSAGE 1; BASOPHILS % 0.3 % (0.0-2.0); EOSINOPHILS # 0.1 10^3/ul (0.0-0.5); EOSINOPHILS % 1.5 % (0.0-7.0); HEMATOCRIT 20.8 % (42.0-52.0); LYMPHOCYTES # 0.8 10^3/ul (0.8-2.9); MEAN CORPUSCULAR HGB CONC 30.8 g/dl (32.0-37.0); MEAN CORPUSCULAR VOLUME 94.1 fl (82.0-101.0); MEAN PLATELET VOLUME 11.7 fl (7.4-10.4); MONOCYTE # 0.7 10^3/ul (0.3-0.9); MONOCYTES % 8.7 % (0.0-11.0); NEUTROPHIL # 6.3 10^3/ul (1.6-7.5); NEUTROPHILS % 78.9 % (39.0-77.0); NUCLEATED RED BLOOD CELLS% 0.4 /100WBC (0.0-0.0); PLATELET COUNT 96 10^3/UL (140-415); POSITIVE DIFF @See below; RED BLOOD COUNT 2.21 10^6/ul (4.70-6.10); RED CELL DISTRIBUTION WIDTH 17.3 % (11.5-14.5)
[2018-09-18 06:28] LABS: HEMOGLOBIN A1C 7.6 % (0-5.9)
[2018-09-18 06:35] LABS: HEMOGLOBIN 6.4 g/dl (14.0-18.0)
[2018-09-18 06:51] LABS: IRON 13 ug/dl (35-150)
[2018-09-18 06:55] LABS: ALANINE AMINOTRANSFERASE 69 IU/L (13-69); ALKALINE PHOSPHATASE 169 IU/L (42-121); ANION GAP 7 (5-13); ASPARTATE AMINO TRANSFERASE 48 IU/L (15-46); BILIRUBIN,INDIRECT 0.7 mg/dl (0-1.1); BILIRUBIN,TOTAL 0.7 mg/dl (0.2-1.3); BLOOD UREA NITROGEN 35 mg/dl (7-20); CALCIUM 8.2 mg/dl (8.4-10.2); CARBON DIOXIDE 31 mmol/L (21-31); CHLORIDE 106 mmol/L (97-110); CHOL/HDL RATIO 4.3 RATIO; CHOLESTEROL 83 mg/dl (100-200); CREATININE 1.63 mg/dl (0.61-1.24); Estimated GFR 44 mL/min (>60); GLUCOSE 207 mg/dl (70-220); HDL CHOLESTEROL 19 mg/dl (28-71); LDL CHOLESTEROL,CALCULATED 47 mg/dl; POTASSIUM 3.8 mmol/L (3.5-5.1); SODIUM 144 mmol/L (135-144); TOTAL PROTEIN 6.3 g/dl (6.1-8.1); TRIGLYCERIDES 83 mg/dl (0-149)
[2018-09-18 07:00] LABS: % IRON SATURATION 4 % SAT (22-52); TOTAL IRON BINDING CAPACITY 304 ug/dl (241-421)
[2018-09-18 07:08] LABS: FERRITIN 41.3 ng/ml (11.1-264.0)
[2018-09-18] MEDS: DONEPEZIL 10 MG TAB PO (08:27)
[2018-09-18] MEDS: FERROUS SULFATE (EC) 325 MG TAB PO ×2 (08:27→20:13)
[2018-09-18] MEDS: GABAPENTIN 300 MG CAP PO ×3 (08:29→20:13)
[2018-09-18] MEDS: FUROSEMIDE 40 MG TAB PO ×2 (08:29→20:14)
[2018-09-18] MEDS: MULTIVITAMINS THERAPEUTIC TAB PO (08:29)
[2018-09-18] MEDS: CEFEPIME 1GM/50 ML (PMX) 50 ML IVPB ×2 (08:30→20:13)
[2018-09-18] MEDS: LINAGLIPTIN 5 MG TABLET PO (08:30)
[2018-09-18] MEDS: AMLODIPINE 5 MG TAB PO (08:30)
[2018-09-18] MEDS: INSULIN GLARGINE [LANTus] (100 UNITS/ML) SYG SC (08:32)
[2018-09-18] MEDS: INSULIN ASPART [NOVOLOG] 3 ML PEN SC ×7 (08:33→20:29)
[2018-09-18] MEDS ORDERED: CLOPIDOGREL 75 MG TAB PO (09:00)
[2018-09-18] MEDS ORDERED: APIXABAN 5 MG TABLET PO (09:00)
[2018-09-18] MEDS ORDERED: HEPARIN 5,000 UNIT/1 ML VIAL SC (09:00)
[2018-09-18] MEDS ORDERED: VANCOMYCIN IV PER PHARMACY XX (09:00)
[2018-09-18] MEDS: GUAIFENESIN 20 MG/ML 5ML CUP PO (16:00)
[2018-09-18 18:02] LABS: HEMOGLOBIN 6.9 g/dl (14.0-18.0)
[2018-09-18 18:24] LABS: OCCULT BLOOD STOOL NEGATIVE (NEGATIVE)
[2018-09-18] MEDS: ATORVASTATIN 80 MG TAB PO (20:21)
[2018-09-18] MEDS: TAMSULOSIN (SR) 0.4 MG CAP PO (20:21)
[2018-09-18] MEDS ORDERED: VANCOMYCIN 1.25 GM in SOD CHLORIDE 0.9% 250 ML IVPB (22:00)
[2018-09-18 22:19] LABS: IMMEDIATE SPIN CROSSMATCH 1 2
[2018-09-19] MEDS: ACCU-CHEK XX (02:00)
[2018-09-19] MEDS: FUROSEMIDE 40 MG INJ IV ×2 (02:49→13:37)
[2018-09-19] MEDS: GUAIFENESIN 20 MG/ML 5ML CUP PO ×2 (03:35→17:52)
[2018-09-19 08:17] LABS: ADD MAN DIFF? NO
[2018-09-19 08:23] LABS: WHITE BLOOD COUNT 8.1 10^3/ul (4.8-10.8)
[2018-09-19 08:23] LABS: BASOPHILS % 0.4 % (0.0-2.0); EOSINOPHILS # 0.1 10^3/ul (0.0-0.5); EOSINOPHILS % 1.4 % (0.0-7.0); HEMATOCRIT 26.8 % (42.0-52.0); HEMOGLOBIN 8.4 g/dl (14.0-18.0); LYMPHOCYTES # 0.9 10^3/ul (0.8-2.9); LYMPHOCYTES % 11.3 % (15.0-51.0); MEAN CORPUSCULAR HEMOGLOBIN 28.9 pg (29.0-33.0); MEAN CORPUSCULAR HGB CONC 31.3 g/dl (32.0-37.0); MEAN CORPUSCULAR VOLUME 92.1 fl (82.0-101.0); MEAN PLATELET VOLUME 11.5 fl (7.4-10.4); MONOCYTE # 0.6 10^3/ul (0.3-0.9); MONOCYTES % 7.6 % (0.0-11.0); NEUTROPHIL # 6.3 10^3/ul (1.6-7.5); NEUTROPHILS % 77.8 % (39.0-77.0); NUCLEATED RED BLOOD CELLS # 0.1 10^3/ul (0.0-0.0); PLATELET COUNT 105 10^3/UL (140-415); RED BLOOD COUNT 2.91 10^6/ul (4.70-6.10)
[2018-09-19] MEDS: MULTIVITAMINS THERAPEUTIC TAB PO (08:32)
[2018-09-19] MEDS: FAMOTIDINE 20 MG TAB PO (08:32)
[2018-09-19] MEDS: DONEPEZIL 10 MG TAB PO (08:32)
[2018-09-19] MEDS: ASPIRIN (EC) 81 MG TAB PO (08:32)
[2018-09-19] MEDS: GABAPENTIN 300 MG CAP PO ×3 (08:32→21:14)
[2018-09-19] MEDS: LINAGLIPTIN 5 MG TABLET PO (08:32)
[2018-09-19] MEDS: THIAMINE 100 MG TAB PO (08:32)
[2018-09-19] MEDS: FERROUS SULFATE (EC) 325 MG TAB PO ×2 (08:32→21:14)
[2018-09-19] MEDS: CEFEPIME 1GM/50 ML (PMX) 50 ML IVPB ×2 (08:33→21:13)
[2018-09-19] MEDS: INSULIN ASPART [NOVOLOG] 3 ML PEN SC ×7 (08:34→21:23)
[2018-09-19] MEDS: INSULIN GLARGINE [LANTus] (100 UNITS/ML) SYG SC (08:36)
[2018-09-19] MEDS: FUROSEMIDE 40 MG TAB PO ×2 (08:37→21:14)
[2018-09-19 08:42] LABS: ANION GAP 5 (5-13); BLOOD UREA NITROGEN 34 mg/dl (7-20); CARBON DIOXIDE 29 mmol/L (21-31); CHLORIDE 106 mmol/L (97-110); CREATININE 1.67 mg/dl (0.61-1.24); Estimated GFR 43 mL/min (>60); GLUCOSE 170 mg/dl (70-220); MAGNESIUM 2.4 mg/dl (1.7-2.5); PHOSPHORUS 3.3 mg/dl (2.5-4.9); SODIUM 140 mmol/L (135-144)
[2018-09-19 08:43] LABS: POTASSIUM 3.6 mmol/L (3.5-5.1)
[2018-09-19] MEDS: VANCOMYCIN 1.25 GM in SOD CHLORIDE 0.9% 250 ML IVPB (10:19)
[2018-09-19] MEDS: POTASSIUM CHLORIDE 20 MEQ POWDER FOR ORAL SOLN PO (13:21)
[2018-09-19] MEDS: ATORVASTATIN 80 MG TAB PO (21:14)
[2018-09-19] MEDS: TAMSULOSIN (SR) 0.4 MG CAP PO (21:14)
[2018-09-20] MEDS: ACCU-CHEK XX (01:35)
[2018-09-20 07:15] LABS: ADD MAN DIFF? NO
[2018-09-20 07:23] LABS: WHITE BLOOD COUNT 7.5 10^3/ul (4.8-10.8)
[2018-09-20 07:23] LABS: BASOPHIL # 0.1 10^3/ul (0.0-0.1); BASOPHILS % 0.7 % (0.0-2.0); EOSINOPHILS # 0.2 10^3/ul (0.0-0.5); HEMATOCRIT 27.4 % (42.0-52.0); HEMOGLOBIN 8.5 g/dl (14.0-18.0); LYMPHOCYTES % 13.4 % (15.0-51.0); MEAN CORPUSCULAR HEMOGLOBIN 28.7 pg (29.0-33.0); MEAN CORPUSCULAR VOLUME 92.6 fl (82.0-101.0); MEAN PLATELET VOLUME 11.2 fl (7.4-10.4); MONOCYTE # 0.7 10^3/ul (0.3-0.9); MONOCYTES % 8.8 % (0.0-11.0); NEUTROPHIL # 5.5 10^3/ul (1.6-7.5); NEUTROPHILS % 73.5 % (39.0-77.0); NUCLEATED RED BLOOD CELLS% 0.3 /100WBC (0.0-0.0); PLATELET COUNT 120 10^3/UL (140-415); RED BLOOD COUNT 2.96 10^6/ul (4.70-6.10); RED CELL DISTRIBUTION WIDTH 17.2 % (11.5-14.5)
[2018-09-20 07:46] LABS: ALANINE AMINOTRANSFERASE 62 IU/L (13-69); ALBUMIN 2.9 g/dl (3.3-4.9); ALBUMIN/GLOBULIN RATIO 0.85; ALKALINE PHOSPHATASE 197 IU/L (42-121); ANION GAP 9 (5-13); ASPARTATE AMINO TRANSFERASE 62 IU/L (15-46); BILIRUBIN,INDIRECT 0.9 mg/dl (0-1.1); BILIRUBIN,TOTAL 0.9 mg/dl (0.2-1.3); BLOOD UREA NITROGEN 28 mg/dl (7-20); CALCIUM 7.9 mg/dl (8.4-10.2); CARBON DIOXIDE 29 mmol/L (21-31); CHLORIDE 104 mmol/L (97-110); CREATININE 1.43 mg/dl (0.61-1.24); Estimated GFR 52 mL/min (>60); GLUCOSE 165 mg/dl (70-220); MAGNESIUM 2.3 mg/dl (1.7-2.5); POTASSIUM 3.9 mmol/L (3.5-5.1); SODIUM 142 mmol/L (135-144); TOTAL PROTEIN 6.3 g/dl (6.1-8.1)
[2018-09-20] MEDS: THIAMINE 100 MG TAB PO (08:32)
[2018-09-20] MEDS: CEFEPIME 1GM/50 ML (PMX) 50 ML IVPB (08:32)
[2018-09-20] MEDS: POTASSIUM CHLORIDE 20 MEQ POWDER FOR ORAL SOLN PO (08:32)
[2018-09-20] MEDS: LINAGLIPTIN 5 MG TABLET PO (08:33)
[2018-09-20] MEDS: ASPIRIN (EC) 81 MG TAB PO (08:33)
[2018-09-20] MEDS: FAMOTIDINE 20 MG TAB PO (08:33)
[2018-09-20] MEDS: MULTIVITAMINS THERAPEUTIC TAB PO (08:33)
[2018-09-20] MEDS: GABAPENTIN 300 MG CAP PO ×3 (08:33→21:01)
[2018-09-20] MEDS: FERROUS SULFATE (EC) 325 MG TAB PO ×2 (08:34→21:01)
[2018-09-20] MEDS: FUROSEMIDE 40 MG TAB PO ×2 (08:34→21:01)
[2018-09-20] MEDS: INSULIN GLARGINE [LANTus] (100 UNITS/ML) SYG SC (08:35)
[2018-09-20] MEDS: INSULIN ASPART [NOVOLOG] 3 ML PEN SC ×7 (08:36→20:51)
[2018-09-20] MEDS: DONEPEZIL 10 MG TAB PO (08:38)
[2018-09-20] MEDS: VANCOMYCIN 1.25 GM in SOD CHLORIDE 0.9% 250 ML IVPB (10:42)
[2018-09-20] MEDS: ATORVASTATIN 80 MG TAB PO (21:00)
[2018-09-20] MEDS: TAMSULOSIN (SR) 0.4 MG CAP PO (21:01)
[2018-09-20 21:52] LABS: C-REACTIVE PROTEIN 3.5 mg/dl (0.0-0.9)
[2018-09-20 22:46] LABS: ERYTHROCYTE SEDIMENTATION RATE 60 mm/Hr (0-20)
[2018-09-21] MEDS: ACCU-CHEK XX (02:36)
[2018-09-21 06:02] LABS: ADD MAN DIFF? NO
[2018-09-21 06:12] LABS: WHITE BLOOD COUNT 7.9 10^3/ul (4.8-10.8)
[2018-09-21 06:12] LABS: BASOPHIL # 0.1 10^3/ul (0.0-0.1); BASOPHILS % 0.6 % (0.0-2.0); EOSINOPHILS # 0.1 10^3/ul (0.0-0.5); EOSINOPHILS % 1.6 % (0.0-7.0); HEMATOCRIT 28.9 % (42.0-52.0); HEMOGLOBIN 8.9 g/dl (14.0-18.0); MEAN CORPUSCULAR HEMOGLOBIN 29.1 pg (29.0-33.0); MEAN CORPUSCULAR HGB CONC 30.8 g/dl (32.0-37.0); MEAN CORPUSCULAR VOLUME 94.4 fl (82.0-101.0); MEAN PLATELET VOLUME 10.6 fl (7.4-10.4); MONOCYTE # 0.7 10^3/ul (0.3-0.9); NEUTROPHILS % 75.5 % (39.0-77.0); PLATELET COUNT 135 10^3/UL (140-415); RED BLOOD COUNT 3.06 10^6/ul (4.70-6.10); RED CELL DISTRIBUTION WIDTH 17.1 % (11.5-14.5)
[2018-09-21 06:22] LABS: MAGNESIUM 2.3 mg/dl (1.7-2.5)
[2018-09-21 06:22] LABS: PHOSPHORUS 2.8 mg/dl (2.5-4.9)
[2018-09-21 06:35] LABS: ALANINE AMINOTRANSFERASE 66 IU/L (13-69); ALBUMIN 2.9 g/dl (3.3-4.9); ALKALINE PHOSPHATASE 228 IU/L (42-121); ANION GAP 3 (5-13); ASPARTATE AMINO TRANSFERASE 66 IU/L (15-46); BILIRUBIN,INDIRECT 0.7 mg/dl (0-1.1); BILIRUBIN,TOTAL 0.7 mg/dl (0.2-1.3); BLOOD UREA NITROGEN 20 mg/dl (7-20); CALCIUM 8.3 mg/dl (8.4-10.2); CARBON DIOXIDE 34 mmol/L (21-31); CHLORIDE 105 mmol/L (97-110); Estimated GFR 58 mL/min (>60); GLUCOSE 198 mg/dl (70-220); POTASSIUM 4.7 mmol/L (3.5-5.1); SODIUM 142 mmol/L (135-144); TOTAL PROTEIN 6.1 g/dl (6.1-8.1)
[2018-09-21] MEDS: INSULIN ASPART [NOVOLOG] 3 ML PEN SC ×7 (08:55→20:28)
[2018-09-21] MEDS: PIPER-TAZO 3.375 GM IV (PMX) 100 ML IVPB ×3 (08:57→23:49)
[2018-09-21] MEDS: DONEPEZIL 10 MG TAB PO (08:57)
[2018-09-21] MEDS: INSULIN GLARGINE [LANTus] (100 UNITS/ML) SYG SC (08:57)
[2018-09-21] MEDS: FERROUS SULFATE (EC) 325 MG TAB PO ×2 (08:57→20:37)
[2018-09-21] MEDS: ASPIRIN (EC) 81 MG TAB PO (08:58)
[2018-09-21] MEDS: POTASSIUM CHLORIDE 20 MEQ POWDER FOR ORAL SOLN PO (08:58)
[2018-09-21] MEDS: FUROSEMIDE 40 MG TAB PO ×2 (08:58→20:37)
[2018-09-21] MEDS: FAMOTIDINE 20 MG TAB PO (08:58)
[2018-09-21] MEDS: GABAPENTIN 300 MG CAP PO ×3 (08:58→20:37)
[2018-09-21] MEDS: THIAMINE 100 MG TAB PO (08:59)
[2018-09-21] MEDS: LINAGLIPTIN 5 MG TABLET PO (08:59)
[2018-09-21] MEDS: MULTIVITAMINS THERAPEUTIC TAB PO (08:59)
[2018-09-21] MEDS: VANCOMYCIN 750 MG (PMX) 250 ML IVPB ×2 (12:14→23:00)
[2018-09-21] MEDS: FUROSEMIDE 40 MG INJ IV (17:04)
[2018-09-21] MEDS: HEPARIN 5,000 UNIT/1 ML VIAL SC ×2 (17:05→22:02)
[2018-09-21 18:28] LABS: CREATINE KINASE 78 IU/L (23-200)
[2018-09-21 18:39] LABS: CK INDEX 1.6; CK-MB 1.22 ng/ml (0.0-2.4); TROPONIN-I 0.045 ng/ml (0.000-0.120)
[2018-09-21] MEDS: TAMSULOSIN (SR) 0.4 MG CAP PO (20:37)
[2018-09-21] MEDS: ATORVASTATIN 80 MG TAB PO (20:37)
[2018-09-22 01:05] LABS: CREATINE KINASE 77 IU/L (23-200)
[2018-09-22 01:16] LABS: CK INDEX 1.2; CK-MB 0.92 ng/ml (0.0-2.4); TROPONIN-I 0.046 ng/ml (0.000-0.120)
[2018-09-22] MEDS: ACCU-CHEK XX (02:00)
[2018-09-22] MEDS: PIPER-TAZO 3.375 GM IV (PMX) 100 ML IVPB ×2 (05:46→11:49)
[2018-09-22] MEDS: HEPARIN 5,000 UNIT/1 ML VIAL SC ×3 (05:55→22:00)
[2018-09-22 06:51] LABS: ADD MAN DIFF? NO
[2018-09-22 06:55] LABS: WHITE BLOOD COUNT 8.4 10^3/ul (4.8-10.8)
[2018-09-22 06:55] LABS: BASOPHILS % 0.5 % (0.0-2.0); EOSINOPHILS # 0.1 10^3/ul (0.0-0.5); EOSINOPHILS % 1.4 % (0.0-7.0); HEMATOCRIT 28.2 % (42.0-52.0); HEMOGLOBIN 8.6 g/dl (14.0-18.0); LYMPHOCYTES % 11.9 % (15.0-51.0); MEAN CORPUSCULAR HEMOGLOBIN 28.7 pg (29.0-33.0); MEAN CORPUSCULAR HGB CONC 30.5 g/dl (32.0-37.0); MONOCYTE # 0.5 10^3/ul (0.3-0.9); MONOCYTES % 6.3 % (0.0-11.0); NEUTROPHIL # 6.7 10^3/ul (1.6-7.5); NEUTROPHILS % 79.3 % (39.0-77.0); PLATELET COUNT 138 10^3/UL (140-415); RED CELL DISTRIBUTION WIDTH 16.7 % (11.5-14.5)
[2018-09-22 07:17] LABS: PHOSPHORUS 2.9 mg/dl (2.5-4.9)
[2018-09-22 07:24] LABS: CHOLESTEROL 74 mg/dl (100-200)
[2018-09-22 07:24] LABS: ANION GAP 6 (5-13); BLOOD UREA NITROGEN 22 mg/dl (7-20); CARBON DIOXIDE 34 mmol/L (21-31); CHLORIDE 100 mmol/L (97-110); CHOL/HDL RATIO 3.7 RATIO; CREATININE 1.37 mg/dl (0.61-1.24); Estimated GFR 54 mL/min (>60); GLUCOSE 171 mg/dl (70-220); HDL CHOLESTEROL 20 mg/dl (28-71); LDL CHOLESTEROL,CALCULATED 43 mg/dl; POTASSIUM 3.9 mmol/L (3.5-5.1); SODIUM 140 mmol/L (135-144); TRIGLYCERIDES 55 mg/dl (0-149)
[2018-09-22] MEDS: INSULIN ASPART [NOVOLOG] 3 ML PEN SC ×7 (08:19→20:38)
[2018-09-22] MEDS: MULTIVITAMINS THERAPEUTIC TAB PO (08:20)
[2018-09-22] MEDS: ASPIRIN (EC) 81 MG TAB PO (08:20)
[2018-09-22] MEDS: INSULIN GLARGINE [LANTus] (100 UNITS/ML) SYG SC (08:20)
[2018-09-22] MEDS: LINAGLIPTIN 5 MG TABLET PO (08:21)
[2018-09-22] MEDS: POTASSIUM CHLORIDE 20 MEQ POWDER FOR ORAL SOLN PO (08:21)
[2018-09-22] MEDS: THIAMINE 100 MG TAB PO (08:21)
[2018-09-22] MEDS: FAMOTIDINE 20 MG TAB PO (08:21)
[2018-09-22] MEDS: FERROUS SULFATE (EC) 325 MG TAB PO ×2 (08:21→20:44)
[2018-09-22] MEDS: GABAPENTIN 300 MG CAP PO ×3 (08:21→20:44)
[2018-09-22] MEDS: FUROSEMIDE 40 MG TAB PO ×2 (09:01→20:45)
[2018-09-22] MEDS: GUAIFENESIN 20 MG/ML 5ML CUP PO ×2 (09:01→20:43)
[2018-09-22 10:59] LABS: VANCOMYCIN,TROUGH 13.5 ug/ml (10.0-20.0)
[2018-09-22] MEDS: VANCOMYCIN 750 MG (PMX) 250 ML IVPB ×2 (12:35→23:45)
[2018-09-22] MEDS: TAMSULOSIN (SR) 0.4 MG CAP PO (20:44)
[2018-09-22] MEDS: ATORVASTATIN 80 MG TAB PO (20:44)
[2018-09-23] MEDS: ACCU-CHEK XX (01:33)
[2018-09-23] MEDS: HEPARIN 5,000 UNIT/1 ML VIAL SC ×2 (05:46→14:31)
[2018-09-23] MEDS: GUAIFENESIN 20 MG/ML 5ML CUP PO (05:49)
[2018-09-23 05:56] LABS: ADD MAN DIFF? NO
[2018-09-23 06:01] LABS: BASOPHIL # 0.1 10^3/ul (0.0-0.1); BASOPHILS % 0.9 % (0.0-2.0); EOSINOPHILS # 0.1 10^3/ul (0.0-0.5); EOSINOPHILS % 1.3 % (0.0-7.0); HEMOGLOBIN 8.5 g/dl (14.0-18.0); LYMPHOCYTES # 0.9 10^3/ul (0.8-2.9); LYMPHOCYTES % 11.6 % (15.0-51.0); MEAN CORPUSCULAR HEMOGLOBIN 28.5 pg (29.0-33.0); MEAN CORPUSCULAR HGB CONC 30.4 g/dl (32.0-37.0); MEAN PLATELET VOLUME 10.4 fl (7.4-10.4); MONOCYTE # 0.5 10^3/ul (0.3-0.9); MONOCYTES % 7.1 % (0.0-11.0); NEUTROPHIL # 5.9 10^3/ul (1.6-7.5); NEUTROPHILS % 78.2 % (39.0-77.0); PLATELET COUNT 129 10^3/UL (140-415); RED BLOOD COUNT 2.98 10^6/ul (4.70-6.10); RED CELL DISTRIBUTION WIDTH 16.8 % (11.5-14.5)
[2018-09-23 06:01] LABS: WHITE BLOOD COUNT 7.6 10^3/ul (4.8-10.8)
[2018-09-23 06:21] LABS: ANION GAP 5 (5-13); BLOOD UREA NITROGEN 23 mg/dl (7-20); CALCIUM 8.3 mg/dl (8.4-10.2); CARBON DIOXIDE 33 mmol/L (21-31); CHLORIDE 102 mmol/L (97-110); CREATININE 1.38 mg/dl (0.61-1.24); Estimated GFR 54 mL/min (>60); GLUCOSE 238 mg/dl (70-220); SODIUM 140 mmol/L (135-144)
[2018-09-23 06:23] LABS: PHOSPHORUS 3.3 mg/dl (2.5-4.9)
[2018-09-23 06:23] LABS: MAGNESIUM 2.1 mg/dl (1.7-2.5)
[2018-09-23] MEDS: INSULIN GLARGINE [LANTus] (100 UNITS/ML) SYG SC (08:03)
[2018-09-23] MEDS: INSULIN ASPART [NOVOLOG] 3 ML PEN SC ×4 (08:04→12:09)
[2018-09-23] MEDS: THIAMINE 100 MG TAB PO (08:05)
[2018-09-23] MEDS: POTASSIUM CHLORIDE 20 MEQ POWDER FOR ORAL SOLN PO (08:05)
[2018-09-23] MEDS: FERROUS SULFATE (EC) 325 MG TAB PO (08:05)
[2018-09-23] MEDS: FUROSEMIDE 40 MG TAB PO (08:05)
[2018-09-23] MEDS: FAMOTIDINE 20 MG TAB PO (08:05)
[2018-09-23] MEDS: MULTIVITAMINS THERAPEUTIC TAB PO (08:05)
[2018-09-23] MEDS: ASPIRIN (EC) 81 MG TAB PO (08:06)
[2018-09-23] MEDS: LINAGLIPTIN 5 MG TABLET PO (08:06)
[2018-09-23] MEDS: GABAPENTIN 300 MG CAP PO ×2 (08:06→14:27)
[2018-09-23] MEDS: DOXYCYCLINE 100 MG TAB PO (11:05)
== END 2018-09-23 16:10 | disposition home or self-care (01) | DRG 602 ==
LOC: PP2 23:48 → E/R 19:49
PROC: 30233N1 Transfusion of Nonautologous Red Blood Cells into Peripheral Vein, Percutaneous Approach (ICD-10-PCS; principal; 2018-09-18)
DX: L03.116 Cellulitis of left lower limb (principal); I50.23 Acute on chronic systolic (congestive) heart failure; I27.20 Pulmonary hypertension, unspecified; F03.90 Unspecified dementia, unspecified severity, without behavioral disturbance, psychotic disturbance, mood disturbance, and anxiety; E11.22 Type 2 diabetes mellitus with diabetic chronic kidney disease; N18.9 Chronic kidney disease, unspecified; Z95.1 Presence of aortocoronary bypass graft; D50.9 Iron deficiency anemia, unspecified; Z89.432 Acquired absence of left foot; I08.1 Rheumatic disorders of both mitral and tricuspid valves; I25.10 Atherosclerotic heart disease of native coronary artery without angina pectoris; D69.6 Thrombocytopenia, unspecified; I48.0 Paroxysmal atrial fibrillation; Z95.5 Presence of coronary angioplasty implant and graft; I25.5 Ischemic cardiomyopathy; E78.5 Hyperlipidemia, unspecified; E11.621 Type 2 diabetes mellitus with foot ulcer; L97.529 Non-pressure chronic ulcer of other part of left foot with unspecified severity; E11.42 Type 2 diabetes mellitus with diabetic polyneuropathy; E11.51 Type 2 diabetes mellitus with diabetic peripheral angiopathy without gangrene
CPT/HCPCS: 36415; 36430; 71045; 73590; 73630-LT; 80048; 80053; 80061; 80202; 81001; 82270; 82550; 82553; 82728; 82962; 83036; 83540; 83605; 83735; 84100; 84443; 84484; 85014; 85018; 85025; 85610; 85651; 85730; 86140; 86850; 86900; 86901; 86920; 87040; 87045; 87070; 87081; 87086; 93005; 93306; 93922; 93971; 96365; 96375; 99285-25

== ENCOUNTER 2018-10-04 14:06 | Inpatient (IN) | payer MEDICARE, OTHER ==
[2018-10-04 15:33] LABS: ADD MAN DIFF? NO
[2018-10-04 15:34] LABS: BASOPHIL # 0.1 10^3/ul (0.0-0.1); EOSINOPHILS # 0.2 10^3/ul (0.0-0.5); EOSINOPHILS % 2.1 % (0.0-7.0); HEMATOCRIT 29.2 % (42.0-52.0); HEMOGLOBIN 8.7 g/dl (14.0-18.0); LYMPHOCYTES # 0.9 10^3/ul (0.8-2.9); LYMPHOCYTES % 12.7 % (15.0-51.0); MEAN CORPUSCULAR HEMOGLOBIN 28.1 pg (29.0-33.0); MEAN CORPUSCULAR HGB CONC 29.8 g/dl (32.0-37.0); MEAN CORPUSCULAR VOLUME 94.2 fl (82.0-101.0); MEAN PLATELET VOLUME 11.9 fl (7.4-10.4); MONOCYTE # 0.6 10^3/ul (0.3-0.9); NEUTROPHIL # 5.2 10^3/ul (1.6-7.5); NEUTROPHILS % 74.2 % (39.0-77.0); PLATELET COUNT 120 10^3/UL (140-415); RED CELL DISTRIBUTION WIDTH 16.8 % (11.5-14.5)
[2018-10-04 15:51] LABS: ALANINE AMINOTRANSFERASE 51 IU/L (13-69); ALBUMIN 3.7 g/dl (3.3-4.9); ALBUMIN/GLOBULIN RATIO 1.02; ALKALINE PHOSPHATASE 229 IU/L (42-121); ANION GAP 7 (5-13); ASPARTATE AMINO TRANSFERASE 58 IU/L (15-46); BILIRUBIN,INDIRECT 0.4 mg/dl (0-1.1); BILIRUBIN,TOTAL 0.4 mg/dl (0.2-1.3); BLOOD UREA NITROGEN 47 mg/dl (7-20); CALCIUM 9.1 mg/dl (8.4-10.2); CARBON DIOXIDE 29 mmol/L (21-31); CHLORIDE 109 mmol/L (97-110); CREATININE 1.73 mg/dl (0.61-1.24); Estimated GFR 41 mL/min (>60); GLUCOSE 97 mg/dl (70-220); POTASSIUM 4.3 mmol/L (3.5-5.1); SODIUM 145 mmol/L (135-144); TOTAL PROTEIN 7.3 g/dl (6.1-8.1)
[2018-10-04] MEDS ORDERED: ACETAMINOPHEN 325 MG TAB PO ×2 (16:30→17:30)
[2018-10-04] MEDS ORDERED: ONDANSETRON 4 MG INJ IV (16:30)
[2018-10-04 16:57] LABS: ADD UMIC YES; UR ASCORBIC ACID NEGATIVE (NEGATIVE); UR BILIRUBIN (Dip) NEGATIVE (NEGATIVE); UR BLOOD (Dip) NEGATIVE (NEGATIVE); UR CLARITY CLEAR (CLEAR); UR COLOR STRAW (YELLOW); UR GLUCOSE (Dip) NEGATIVE (NEGATIVE); UR HYALINE CAST FEW /HPF (NONE SEEN); UR KETONES (Dip) NEGATIVE (NEGATIVE); UR LEUKOCYTE ESTERASE (Dip) NEGATIVE Leu/ul (NEGATIVE); UR NITRITE (Dip) NEGATIVE (NEGATIVE); UR RBC 2 /HPF (0-5); UR TOTAL PROTEIN (Dip) 2+ mg/dl (NEGATIVE); UR UROBILINOGEN (Dip) NEGATIVE (NEGATIVE); UR WBC 0 /HPF (0-5)
[2018-10-04] MEDS ORDERED: HYDROCODONE/APAP (5/325) TAB PO (17:30)
[2018-10-04] MEDS ORDERED: NACL 0.9% 3 ML SYG IV (17:30)
[2018-10-04 18:13] LABS: B-TYPE NATRIURETIC PEPTIDE 4710 PG/ML (0-125)
[2018-10-04] MEDS: INSULIN ASPART [NOVOLOG] 3 ML PEN SC ×2 (18:19→21:00)
[2018-10-04] MEDS ORDERED: GLUCOSE GEL 15 GRAM TUBE PO (18:30)
[2018-10-04] MEDS ORDERED: GLUCAGON 1 MG INJ IM (18:30)
[2018-10-04] MEDS ORDERED: GLUCOSE GEL 15 GRAM TUBE BUCCAL (18:30)
[2018-10-04] MEDS ORDERED: DEXTROSE 50% 50 ML SYRINGE IV ×2 (18:30)
[2018-10-04 19:29] LABS: C-REACTIVE PROTEIN 0.5 mg/dl (0.0-0.9)
[2018-10-04] MEDS ORDERED: INSULIN GLARGINE [LANTus] (100 UNITS/ML) SYG SC (20:00)
[2018-10-04 20:25] LABS: ERYTHROCYTE SEDIMENTATION RATE 55 mm/Hr (0-20)
[2018-10-04] MEDS: BUMETANIDE 1 MG INJ IV (21:38)
[2018-10-04] MEDS: FERROUS SULFATE (EC) 325 MG TAB PO (21:41)
[2018-10-04] MEDS: TAMSULOSIN (SR) 0.4 MG CAP PO (21:42)
[2018-10-04] MEDS: ATORVASTATIN 80 MG TAB PO (21:42)
[2018-10-04] MEDS: GABAPENTIN 300 MG CAP PO (21:43)
[2018-10-05] MEDS: ACCU-CHEK XX (02:00)
[2018-10-05] MEDS: PANTOPRAZOLE (EC) 40 MG TAB PO (06:03)
[2018-10-05] MEDS: BUMETANIDE 1 MG INJ IV ×2 (06:03→17:16)
[2018-10-05] MEDS: LEVOTHYROXINE 50 MCG TAB PO (06:04)
[2018-10-05] MEDS: INSULIN ASPART [NOVOLOG] 3 ML PEN SC ×3 (08:00→17:18)
[2018-10-05] MEDS: GLUCOSE GEL 15 GRAM TUBE PO (08:43)
[2018-10-05 08:57] LABS: ADD MAN DIFF? NO
[2018-10-05] MEDS: ASPIRIN (EC) 81 MG TAB PO (09:05)
[2018-10-05] MEDS: AMIODARONE 200 MG TAB PO (09:05)
[2018-10-05] MEDS: FERROUS SULFATE (EC) 325 MG TAB PO (09:05)
[2018-10-05 09:06] LABS: BASOPHIL # 0.1 10^3/ul (0.0-0.1); BASOPHILS % 0.8 % (0.0-2.0); EOSINOPHILS # 0.1 10^3/ul (0.0-0.5); EOSINOPHILS % 1.9 % (0.0-7.0); HEMATOCRIT 27.8 % (42.0-52.0); HEMOGLOBIN 8.3 g/dl (14.0-18.0); LYMPHOCYTES % 16.5 % (15.0-51.0); MEAN CORPUSCULAR HEMOGLOBIN 27.8 pg (29.0-33.0); MEAN CORPUSCULAR HGB CONC 29.9 g/dl (32.0-37.0); MEAN PLATELET VOLUME 11.8 fl (7.4-10.4); MONOCYTE # 0.5 10^3/ul (0.3-0.9); MONOCYTES % 8.9 % (0.0-11.0); NEUTROPHIL # 4.2 10^3/ul (1.6-7.5); NEUTROPHILS % 70.9 % (39.0-77.0); PLATELET COUNT 120 10^3/UL (140-415); RED BLOOD COUNT 2.99 10^6/ul (4.70-6.10); RED CELL DISTRIBUTION WIDTH 16.9 % (11.5-14.5)
[2018-10-05 09:06] LABS: WHITE BLOOD COUNT 5.9 10^3/ul (4.8-10.8)
[2018-10-05] MEDS: ENOXAPARIN 40 MG/0.4 ML SYG SC (09:06)
[2018-10-05] MEDS: LINAGLIPTIN 5 MG TABLET PO (09:06)
[2018-10-05] MEDS: GABAPENTIN 300 MG CAP PO ×2 (09:07→12:39)
[2018-10-05 09:48] LABS: ALANINE AMINOTRANSFERASE 53 IU/L (13-69); ALBUMIN 3.3 g/dl (3.3-4.9); ALBUMIN/GLOBULIN RATIO 0.89; ALKALINE PHOSPHATASE 195 IU/L (42-121); ANION GAP 6 (5-13); ASPARTATE AMINO TRANSFERASE 53 IU/L (15-46); BILIRUBIN,INDIRECT 0.3 mg/dl (0-1.1); BILIRUBIN,TOTAL 0.3 mg/dl (0.2-1.3); BLOOD UREA NITROGEN 45 mg/dl (7-20); CARBON DIOXIDE 35 mmol/L (21-31); CHLORIDE 104 mmol/L (97-110); CHOLESTEROL 80 mg/dl (100-200); CREATININE 1.68 mg/dl (0.61-1.24); Estimated GFR 43 mL/min (>60); HDL CHOLESTEROL 26 mg/dl (28-71); LDL CHOLESTEROL,CALCULATED 43 mg/dl; MAGNESIUM 2.3 mg/dl (1.7-2.5); PHOSPHORUS 4.4 mg/dl (2.5-4.9); SODIUM 145 mmol/L (135-144); TRIGLYCERIDES 56 mg/dl (0-149)
[2018-10-05 09:52] LABS: GLUCOSE 38 mg/dl (70-220)
[2018-10-05] MEDS: AZITHROMYCIN 250 MG TAB PO (10:37)
[2018-10-05 11:09] LABS: HEMOGLOBIN A1C 7.6 % (0-5.9)
[2018-10-05] MEDS: PROMETHAZINE/DM (CUP) PO (12:40)
[2018-10-06] MEDS ORDERED: AZITHROMYCIN 250 MG TAB PO (09:00)
== END 2018-10-05 18:15 | disposition home or self-care (01) | DRG 291 ==
LOC: E/R 14:06 → 5EC 16:25
PROVIDERS: Internal Medicine
DX: I13.0 Hypertensive heart and chronic kidney disease with heart failure and stage 1 through stage 4 chronic kidney disease, or unspecified chronic kidney disease (principal); I50.23 Acute on chronic systolic (congestive) heart failure; N17.9 Acute kidney failure, unspecified; L97.929 Non-pressure chronic ulcer of unspecified part of left lower leg with unspecified severity; I48.91 Unspecified atrial fibrillation; E11.22 Type 2 diabetes mellitus with diabetic chronic kidney disease; N18.9 Chronic kidney disease, unspecified; Z79.82 Long term (current) use of aspirin
CPT/HCPCS: 36415; 71045; 80053; 80061; 81001; 82962; 83036; 83735; 83880; 84100; 84443; 85025; 85651; 86140; 93005; 97161; 99217; 99285-25

== ENCOUNTER 2019-01-07 18:17 | Inpatient (IN) | payer MEDICARE, OTHER ==
[2019-01-07 21:20] LABS: ADD MAN DIFF? NO
[2019-01-07 21:23] LABS: BASOPHIL # 0.1 10^3/ul (0.0-0.1); BASOPHILS % 0.9 % (0.0-2.0); EOSINOPHILS # 0.1 10^3/ul (0.0-0.5); EOSINOPHILS % 1.7 % (0.0-7.0); HEMATOCRIT 28.8 % (42.0-52.0); HEMOGLOBIN 8.9 g/dl (14.0-18.0); LYMPHOCYTES # 0.8 10^3/ul (0.8-2.9); MEAN CORPUSCULAR HEMOGLOBIN 28.8 pg (29.0-33.0); MEAN CORPUSCULAR HGB CONC 30.9 g/dl (32.0-37.0); MEAN CORPUSCULAR VOLUME 93.2 fl (82.0-101.0); MEAN PLATELET VOLUME 10.7 fl (7.4-10.4); MONOCYTE # 0.5 10^3/ul (0.3-0.9); MONOCYTES % 7.7 % (0.0-11.0); NEUTROPHIL # 4.4 10^3/ul (1.6-7.5); NEUTROPHILS % 74.5 % (39.0-77.0); PLATELET COUNT 105 10^3/UL (140-415); RED BLOOD COUNT 3.09 10^6/ul (4.70-6.10); RED CELL DISTRIBUTION WIDTH 19.9 % (11.5-14.5)
[2019-01-07 21:23] LABS: WHITE BLOOD COUNT 5.8 10^3/ul (4.8-10.8)
[2019-01-07] MEDS: morphine 4 MG/ML VIAL IV (21:31)
[2019-01-07] MEDS: ONDANSETRON 4 MG INJ IV (21:31)
[2019-01-07] MEDS: SOD CHLORIDE 0.9% 1,000 ML IV (21:32)
[2019-01-07 21:38] LABS: INR 1.12; PARTIAL THROMBOPLASTIN TIME 29.7 Sec (23.0-35.0); PROTIME 14.5 Sec (11.9-14.9); PT RATIO 1.1
[2019-01-07 21:39] LABS: ALANINE AMINOTRANSFERASE 51 IU/L (13-69); ALBUMIN 3.7 g/dl (3.3-4.9); ALBUMIN/GLOBULIN RATIO 0.94; ALKALINE PHOSPHATASE 237 IU/L (42-121); AMYLASE 89 U/L (11-123); ANION GAP 10 (5-13); ASPARTATE AMINO TRANSFERASE 59 IU/L (15-46); BILIRUBIN,INDIRECT 0.4 mg/dl (0-1.1); BILIRUBIN,TOTAL 0.4 mg/dl (0.2-1.3); BLOOD UREA NITROGEN 54 mg/dl (7-20); CALCIUM 8.9 mg/dl (8.4-10.2); CARBON DIOXIDE 25 mmol/L (21-31); CHLORIDE 109 mmol/L (97-110); CREATININE 2.73 mg/dl (0.61-1.24); Estimated GFR 24 mL/min (>60); GLUCOSE 249 mg/dl (70-220); POTASSIUM 4.9 mmol/L (3.5-5.1); SODIUM 144 mmol/L (135-144); TOTAL PROTEIN 7.6 g/dl (6.1-8.1)
[2019-01-07 21:51] LABS: TROPONIN-I 0.014 ng/ml (0.000-0.120)
[2019-01-07] MEDS ORDERED: ACETAMINOPHEN 325 MG TAB PO (23:00)
[2019-01-07] MEDS ORDERED: ONDANSETRON 4 MG INJ IV (23:00)
[2019-01-07] MEDS: PIPER-TAZO 3.375 GM IV (PMX) 100 ML IVPB (23:12)
[2019-01-07] MEDS: CLINDAMYCIN 900 MG/D5W (PMX) 50 ML IVPB (23:57)
[2019-01-08] MEDS: HYDROmorphONE 1 MG/ML SYG IV (00:15)
[2019-01-08] MEDS: VANCOMYCIN 1 GM (PMX) 250 ML IVPB (00:29)
[2019-01-08] MEDS ORDERED: ONDANSETRON 4 MG INJ IV (01:00)
[2019-01-08] MEDS ORDERED: ALBUTEROL/IPRATROPIUM (NEB) 3 ML AMP HHN (01:00)
[2019-01-08] MEDS ORDERED: ACETAMINOPHEN 325 MG TAB PO (01:00)
[2019-01-08] MEDS ORDERED: NACL 0.9% 3 ML SYG IV (01:00)
[2019-01-08] MEDS ORDERED: HYDROCODONE/APAP (5/325) TAB PO ×2 (01:00)
[2019-01-08] MEDS: ONDANSETRON 4 MG INJ IV (01:57)
[2019-01-08] MEDS ORDERED: GLUCOSE GEL 15 GRAM TUBE PO ×2 (03:30)
[2019-01-08] MEDS ORDERED: GLUCOSE GEL 15 GRAM TUBE BUCCAL (03:30)
[2019-01-08] MEDS ORDERED: DEXTROSE 50% 50 ML SYRINGE IV ×2 (03:30)
[2019-01-08] MEDS ORDERED: GLUCAGON 1 MG INJ IM (03:30)
[2019-01-08] MEDS ORDERED: PENDING SANTYL ORDER FOR WOUND CARE XX (05:00)
[2019-01-08] MEDS: LEVOTHYROXINE 50 MCG TAB PO (06:13)
[2019-01-08] MEDS: PANTOPRAZOLE (EC) 40 MG TAB PO (06:13)
[2019-01-08 06:20] LABS: ADD MAN DIFF? NO
[2019-01-08 06:25] LABS: ABNORMAL IP MESSAGE 1; BASOPHILS % 0.7 % (0.0-2.0); EOSINOPHILS % 0.7 % (0.0-7.0); HEMATOCRIT 27.8 % (42.0-52.0); HEMOGLOBIN 8.5 g/dl (14.0-18.0); LYMPHOCYTES # 0.6 10^3/ul (0.8-2.9); LYMPHOCYTES % 13.1 % (15.0-51.0); MEAN CORPUSCULAR HEMOGLOBIN 28.8 pg (29.0-33.0); MEAN CORPUSCULAR HGB CONC 30.6 g/dl (32.0-37.0); MEAN CORPUSCULAR VOLUME 94.2 fl (82.0-101.0); MEAN PLATELET VOLUME 11.3 fl (7.4-10.4); MONOCYTE # 0.4 10^3/ul (0.3-0.9); MONOCYTES % 7.8 % (0.0-11.0); NEUTROPHIL # 3.4 10^3/ul (1.6-7.5); NEUTROPHILS % 76.4 % (39.0-77.0); PLATELET COUNT 93 10^3/UL (140-415); POSITIVE DIFF @See below; RED BLOOD COUNT 2.95 10^6/ul (4.70-6.10); RED CELL DISTRIBUTION WIDTH 19.9 % (11.5-14.5)
[2019-01-08 06:25] LABS: WHITE BLOOD COUNT 4.5 10^3/ul (4.8-10.8)
[2019-01-08 06:57] LABS: ALANINE AMINOTRANSFERASE 49 IU/L (13-69); ALBUMIN 3.5 g/dl (3.3-4.9); ALBUMIN/GLOBULIN RATIO 1.06; ALKALINE PHOSPHATASE 195 IU/L (42-121); ANION GAP 6 (5-13); ASPARTATE AMINO TRANSFERASE 53 IU/L (15-46); BILIRUBIN,INDIRECT 0.3 mg/dl (0-1.1); BILIRUBIN,TOTAL 0.3 mg/dl (0.2-1.3); BLOOD UREA NITROGEN 52 mg/dl (7-20); CALCIUM 8.5 mg/dl (8.4-10.2); CARBON DIOXIDE 26 mmol/L (21-31); CHLORIDE 111 mmol/L (97-110); CHOL/HDL RATIO 3.6 RATIO; CHOLESTEROL 90 mg/dl (100-200); CREATININE 2.48 mg/dl (0.61-1.24); Estimated GFR 27 mL/min (>60); GLUCOSE 213 mg/dl (70-220); HDL CHOLESTEROL 25 mg/dl (28-71); LDL CHOLESTEROL,CALCULATED 46 mg/dl; MAGNESIUM 2.8 mg/dl (1.7-2.5); SODIUM 143 mmol/L (135-144); TOTAL PROTEIN 6.8 g/dl (6.1-8.1); TRIGLYCERIDES 93 mg/dl (0-149)
[2019-01-08 07:11] LABS: POTASSIUM 5.2 mmol/L (3.5-5.1)
[2019-01-08 07:24] LABS: HEMOGLOBIN A1C 8.9 % (0-5.9)
[2019-01-08] MEDS: INSULIN ASPART [NOVOLOG] 3 ML PEN SC ×7 (08:08→21:26)
[2019-01-08] MEDS: INSULIN GLARGINE [LANTus] (100 UNITS/ML) SYG SC (08:10)
[2019-01-08] MEDS: HEPARIN 5,000 UNIT/1 ML VIAL SC ×2 (08:15→21:27)
[2019-01-08] MEDS: GABAPENTIN 300 MG CAP PO ×3 (08:18→21:32)
[2019-01-08] MEDS: FERROUS SULFATE (EC) 325 MG TAB PO ×2 (08:18→21:32)
[2019-01-08] MEDS: FUROSEMIDE 40 MG TAB PO (08:20)
[2019-01-08] MEDS: AMIODARONE 200 MG TAB PO (08:21)
[2019-01-08] MEDS ORDERED: VANCOMYCIN IV PER PHARMACY XX (11:00)
[2019-01-08] MEDS ORDERED: PIPER-TAZO 3.375 GM IV (PMX) 100 ML IVPB (12:00)
[2019-01-08] MEDS: SODIUM POLYSTYRENE 15 GM KIT (POWDER + SORBITOL) PO (12:50)
[2019-01-08] MEDS: PIPER-TAZO 2.25 GM (PMX) 50 ML IVPB ×3 (12:51→23:49)
[2019-01-08] MEDS: VANCOMYCIN HCL 1.5 GM in SOD CHLORIDE 0.9% 250 ML IVPB (13:53)
[2019-01-08 19:10] LABS: C-REACTIVE PROTEIN < 0.5 mg/dl (0.0-0.9)
[2019-01-08 19:43] LABS: ERYTHROCYTE SEDIMENTATION RATE 50 mm/Hr (0-20)
[2019-01-08] MEDS: ATORVASTATIN 80 MG TAB PO (21:32)
[2019-01-08] MEDS: TAMSULOSIN (SR) 0.4 MG CAP PO (21:34)
[2019-01-08 22:15] LABS: ADD UMIC YES; UR ASCORBIC ACID NEGATIVE (NEGATIVE); UR BILIRUBIN (Dip) NEGATIVE (NEGATIVE); UR BLOOD (Dip) 1+ mg/dL (NEGATIVE); UR CLARITY CLEAR (CLEAR); UR COLOR STRAW (YELLOW); UR GLUCOSE (Dip) NEGATIVE (NEGATIVE); UR KETONES (Dip) NEGATIVE (NEGATIVE); UR LEUKOCYTE ESTERASE (Dip) NEGATIVE Leu/ul (NEGATIVE); UR NITRITE (Dip) NEGATIVE (NEGATIVE); UR RBC 1 /HPF (0-5); UR SPECIFIC GRAVITY (Dip) 1.011 (1.003-1.030); UR TOTAL PROTEIN (Dip) 1+ mg/dl (NEGATIVE); UR UROBILINOGEN (Dip) NEGATIVE (NEGATIVE); UR WBC 0 /HPF (0-5)
[2019-01-08 22:23] LABS: CREATININE,URINE RANDOM 28.94 mg/dl (20-370); PROTEIN/CREAT RATIO 1.86 RATIO
[2019-01-08 22:26] LABS: CREATININE,URINE RANDOM 29.37 mg/dl (20-370)
[2019-01-08 22:26] LABS: SODIUM,URINE RANDOM 132 mmol/L (30-90)
[2019-01-09] MEDS: ACCU-CHEK XX (02:00)
[2019-01-09 06:27] LABS: ADD MAN DIFF? NO
[2019-01-09 06:40] LABS: WHITE BLOOD COUNT 6.2 10^3/ul (4.8-10.8)
[2019-01-09 06:40] LABS: BASOPHILS % 0.6 % (0.0-2.0); EOSINOPHILS # 0.1 10^3/ul (0.0-0.5); EOSINOPHILS % 1.8 % (0.0-7.0); HEMATOCRIT 28.6 % (42.0-52.0); HEMOGLOBIN 8.7 g/dl (14.0-18.0); LYMPHOCYTES # 0.9 10^3/ul (0.8-2.9); LYMPHOCYTES % 13.9 % (15.0-51.0); MEAN CORPUSCULAR HEMOGLOBIN 28.2 pg (29.0-33.0); MEAN CORPUSCULAR HGB CONC 30.4 g/dl (32.0-37.0); MEAN CORPUSCULAR VOLUME 92.6 fl (82.0-101.0); MEAN PLATELET VOLUME 10.5 fl (7.4-10.4); MONOCYTE # 0.6 10^3/ul (0.3-0.9); MONOCYTES % 9.9 % (0.0-11.0); NEUTROPHIL # 4.5 10^3/ul (1.6-7.5); NEUTROPHILS % 72.3 % (39.0-77.0); PLATELET COUNT 100 10^3/UL (140-415); RED BLOOD COUNT 3.09 10^6/ul (4.70-6.10); RED CELL DISTRIBUTION WIDTH 19.9 % (11.5-14.5)
[2019-01-09] MEDS: PIPER-TAZO 2.25 GM (PMX) 50 ML IVPB ×4 (06:52→23:58)
[2019-01-09] MEDS: PANTOPRAZOLE (EC) 40 MG TAB PO (06:58)
[2019-01-09 07:09] LABS: ANION GAP 7 (5-13); BLOOD UREA NITROGEN 42 mg/dl (7-20); CALCIUM 8.7 mg/dl (8.4-10.2); CARBON DIOXIDE 29 mmol/L (21-31); CHLORIDE 109 mmol/L (97-110); CREATININE 2.05 mg/dl (0.61-1.24); Estimated GFR 34 mL/min (>60); GLUCOSE 92 mg/dl (70-220); MAGNESIUM 2.7 mg/dl (1.7-2.5); PHOSPHORUS 4.3 mg/dl (2.5-4.9); POTASSIUM 4.8 mmol/L (3.5-5.1); SODIUM 145 mmol/L (135-144)
[2019-01-09] MEDS: LEVOTHYROXINE 50 MCG TAB PO (07:19)
[2019-01-09] MEDS: INSULIN ASPART [NOVOLOG] 3 ML PEN SC ×7 (08:00→21:00)
[2019-01-09] MEDS: INSULIN GLARGINE [LANTus] (100 UNITS/ML) SYG SC (08:17)
[2019-01-09] MEDS: FERROUS SULFATE (EC) 325 MG TAB PO ×2 (08:49→21:07)
[2019-01-09] MEDS: GABAPENTIN 300 MG CAP PO ×3 (08:49→21:07)
[2019-01-09] MEDS: AMIODARONE 200 MG TAB PO (08:49)
[2019-01-09] MEDS: ASPIRIN 81 MG TAB PO (08:50)
[2019-01-09] MEDS: HEPARIN 5,000 UNIT/1 ML VIAL SC ×2 (08:51→21:10)
[2019-01-09] MEDS: VANCOMYCIN 1 GM 250 ML IVPB (13:20)
[2019-01-09] MEDS: FUROSEMIDE 20 MG INJ IV (17:02)
[2019-01-09] MEDS: SOD CHLORIDE 0.9% 1,000 ML IV (17:05)
[2019-01-09] MEDS: ATORVASTATIN 80 MG TAB PO (21:07)
[2019-01-09] MEDS: TAMSULOSIN (SR) 0.4 MG CAP PO (21:07)
[2019-01-09] MEDS ORDERED: DAKINS 0.0125%(1/40) 473 ML SOLUTION TP (23:55)
[2019-01-10] MEDS: SODIUM HYPOCHLORITE IRR ×2 (01:22→17:07)
[2019-01-10] MEDS: ACCU-CHEK XX (02:00)
[2019-01-10] MEDS: PIPER-TAZO 2.25 GM (PMX) 50 ML IVPB (05:27)
[2019-01-10] MEDS: PANTOPRAZOLE (EC) 40 MG TAB PO (05:27)
[2019-01-10] MEDS: LEVOTHYROXINE 50 MCG TAB PO (06:05)
[2019-01-10 06:10] LABS: ADD MAN DIFF? NO
[2019-01-10 06:16] LABS: WHITE BLOOD COUNT 5.3 10^3/ul (4.8-10.8)
[2019-01-10 06:16] LABS: ABNORMAL IP MESSAGE 1; BASOPHILS % 0.8 % (0.0-2.0); EOSINOPHILS # 0.1 10^3/ul (0.0-0.5); EOSINOPHILS % 1.7 % (0.0-7.0); HEMATOCRIT 26.7 % (42.0-52.0); HEMOGLOBIN 8.2 g/dl (14.0-18.0); LYMPHOCYTES # 0.9 10^3/ul (0.8-2.9); LYMPHOCYTES % 16.8 % (15.0-51.0); MEAN CORPUSCULAR HEMOGLOBIN 28.3 pg (29.0-33.0); MEAN CORPUSCULAR HGB CONC 30.7 g/dl (32.0-37.0); MEAN CORPUSCULAR VOLUME 92.1 fl (82.0-101.0); MEAN PLATELET VOLUME 10.4 fl (7.4-10.4); MONOCYTE # 0.5 10^3/ul (0.3-0.9); MONOCYTES % 10.2 % (0.0-11.0); NEUTROPHIL # 3.7 10^3/ul (1.6-7.5); NEUTROPHILS % 69.4 % (39.0-77.0); NUCLEATED RED BLOOD CELLS% 0.4 /100WBC (0.0-0.0); PLATELET COUNT 94 10^3/UL (140-415); POSITIVE DIFF @See below; RED CELL DISTRIBUTION WIDTH 19.6 % (11.5-14.5)
[2019-01-10 06:31] LABS: PHOSPHORUS 3.5 mg/dl (2.5-4.9)
[2019-01-10 06:31] LABS: MAGNESIUM 2.3 mg/dl (1.7-2.5)
[2019-01-10 06:38] LABS: ANION GAP 5 (5-13); BLOOD UREA NITROGEN 29 mg/dl (7-20); CALCIUM 8.7 mg/dl (8.4-10.2); CARBON DIOXIDE 28 mmol/L (21-31); CHLORIDE 111 mmol/L (97-110); CREATININE 1.63 mg/dl (0.61-1.24); Estimated GFR 44 mL/min (>60); GLUCOSE 122 mg/dl (70-220); POTASSIUM 4.2 mmol/L (3.5-5.1); SODIUM 144 mmol/L (135-144)
[2019-01-10] MEDS: INSULIN ASPART [NOVOLOG] 3 ML PEN SC ×7 (08:00→20:59)
[2019-01-10] MEDS: INSULIN GLARGINE [LANTus] (100 UNITS/ML) SYG SC (08:27)
[2019-01-10] MEDS: GABAPENTIN 300 MG CAP PO ×3 (09:55→20:55)
[2019-01-10] MEDS: ASPIRIN 81 MG TAB PO (09:56)
[2019-01-10] MEDS: AMIODARONE 200 MG TAB PO (09:56)
[2019-01-10] MEDS: FERROUS SULFATE (EC) 325 MG TAB PO ×2 (09:58→20:51)
[2019-01-10] MEDS: FUROSEMIDE 20 MG INJ IV (09:59)
[2019-01-10] MEDS: HEPARIN 5,000 UNIT/1 ML VIAL SC ×2 (10:00→21:00)
[2019-01-10] MEDS: VANCOMYCIN 1 GM 250 ML IVPB (14:30)
[2019-01-10] MEDS: CEFTRIAXONE 1 GM/50 ML (PMX) 50 ML IVPB (17:07)
[2019-01-10 18:47] LABS: CREATINE KINASE 107 IU/L (23-200)
[2019-01-10 18:59] LABS: CK INDEX 2.1; CK-MB 2.27 ng/ml (0.0-2.4); TROPONIN-I 0.013 ng/ml (0.000-0.120)
[2019-01-10] MEDS: TAMSULOSIN (SR) 0.4 MG CAP PO (20:51)
[2019-01-10] MEDS: ATORVASTATIN 80 MG TAB PO (20:51)
[2019-01-11 01:17] LABS: CREATINE KINASE 92 IU/L (23-200)
[2019-01-11 01:31] LABS: CK INDEX 1.9; CK-MB 1.76 ng/ml (0.0-2.4)
[2019-01-11 01:49] LABS: TROPONIN-I 0.014 ng/ml (0.000-0.120)
[2019-01-11] MEDS: ACCU-CHEK XX (02:00)
[2019-01-11] MEDS: LEVOTHYROXINE 50 MCG TAB PO (05:30)
[2019-01-11] MEDS: PANTOPRAZOLE (EC) 40 MG TAB PO (05:31)
[2019-01-11 06:34] LABS: ADD MAN DIFF? NO
[2019-01-11 06:42] LABS: ABNORMAL IP MESSAGE 1; BASOPHILS % 0.5 % (0.0-2.0); EOSINOPHILS # 0.1 10^3/ul (0.0-0.5); EOSINOPHILS % 1.1 % (0.0-7.0); HEMATOCRIT 27.5 % (42.0-52.0); HEMOGLOBIN 8.4 g/dl (14.0-18.0); LYMPHOCYTES % 17.6 % (15.0-51.0); MEAN CORPUSCULAR HEMOGLOBIN 28.5 pg (29.0-33.0); MEAN CORPUSCULAR HGB CONC 30.5 g/dl (32.0-37.0); MEAN CORPUSCULAR VOLUME 93.2 fl (82.0-101.0); MONOCYTE # 0.5 10^3/ul (0.3-0.9); NEUTROPHIL # 3.8 10^3/ul (1.6-7.5); NUCLEATED RED BLOOD CELLS% 0.4 /100WBC (0.0-0.0); PLATELET COUNT 91 10^3/UL (140-415); POSITIVE DIFF @See below; RED BLOOD COUNT 2.95 10^6/ul (4.70-6.10); RED CELL DISTRIBUTION WIDTH 19.5 % (11.5-14.5)
[2019-01-11 06:42] LABS: WHITE BLOOD COUNT 5.5 10^3/ul (4.8-10.8)
[2019-01-11 07:05] LABS: MAGNESIUM 2.3 mg/dl (1.7-2.5)
[2019-01-11 07:06] LABS: ANION GAP 8 (5-13); BLOOD UREA NITROGEN 24 mg/dl (7-20); CALCIUM 8.5 mg/dl (8.4-10.2); CARBON DIOXIDE 25 mmol/L (21-31); CHLORIDE 110 mmol/L (97-110); CREATININE 1.31 mg/dl (0.61-1.24); Estimated GFR 57 mL/min (>60); GLUCOSE 138 mg/dl (70-220); POTASSIUM 4.3 mmol/L (3.5-5.1); SODIUM 143 mmol/L (135-144)
[2019-01-11 07:09] LABS: CREATINE KINASE 92 IU/L (23-200)
[2019-01-11 07:15] LABS: CK INDEX 1.6; CK-MB 1.46 ng/ml (0.0-2.4); TROPONIN-I 0.018 ng/ml (0.000-0.120)
[2019-01-11] MEDS: INSULIN ASPART [NOVOLOG] 3 ML PEN SC ×7 (08:00→22:02)
[2019-01-11] MEDS: FUROSEMIDE 20 MG INJ IV (08:23)
[2019-01-11] MEDS: GABAPENTIN 300 MG CAP PO ×3 (08:25→21:59)
[2019-01-11] MEDS: FERROUS SULFATE (EC) 325 MG TAB PO ×2 (08:25→21:59)
[2019-01-11] MEDS: ASPIRIN 81 MG TAB PO (08:25)
[2019-01-11] MEDS: COLLAGENASE 5 GM (UD JAR) TOP (08:25)
[2019-01-11] MEDS: AMIODARONE 200 MG TAB PO (08:25)
[2019-01-11] MEDS: HEPARIN 5,000 UNIT/1 ML VIAL SC ×2 (08:31→22:02)
[2019-01-11] MEDS: INSULIN GLARGINE [LANTus] (100 UNITS/ML) SYG SC (08:32)
[2019-01-11] MEDS: SODIUM HYPOCHLORITE IRR (08:34)
[2019-01-11] MEDS ORDERED: COLLAGENASE 5 GM (UD JAR) TOP (09:00)
[2019-01-11 12:52] LABS: VANCOMYCIN,TROUGH 9.5 ug/ml (10.0-20.0)
[2019-01-11] MEDS: VANCOMYCIN 1 GM 250 ML IVPB (13:24)
[2019-01-11] MEDS: LIDOCAINE 1% (MPF) 5 ML VIAL SC (14:10)
[2019-01-11] MEDS: CEFTRIAXONE 1 GM/50 ML (PMX) 50 ML IVPB (14:13)
[2019-01-11] MEDS: ATORVASTATIN 80 MG TAB PO (21:59)
[2019-01-11] MEDS: TAMSULOSIN (SR) 0.4 MG CAP PO (21:59)
[2019-01-12] MEDS: VANCOMYCIN 750 MG (PMX) 250 ML IVPB ×2 (01:06→12:11)
[2019-01-12] MEDS: ACCU-CHEK XX (02:00)
[2019-01-12] MEDS: PANTOPRAZOLE (EC) 40 MG TAB PO (05:59)
[2019-01-12 06:43] LABS: ANION GAP 5 (5-13); BLOOD UREA NITROGEN 24 mg/dl (7-20); CALCIUM 8.4 mg/dl (8.4-10.2); CARBON DIOXIDE 27 mmol/L (21-31); CHLORIDE 110 mmol/L (97-110); Estimated GFR 53 mL/min (>60); GLUCOSE 146 mg/dl (70-220); POTASSIUM 4.2 mmol/L (3.5-5.1); SODIUM 142 mmol/L (135-144)
[2019-01-12] MEDS: LEVOTHYROXINE 50 MCG TAB PO (06:48)
[2019-01-12] MEDS: INSULIN ASPART [NOVOLOG] 3 ML PEN SC ×7 (08:11→20:54)
[2019-01-12] MEDS: INSULIN GLARGINE [LANTus] (100 UNITS/ML) SYG SC (08:13)
[2019-01-12] MEDS: COLLAGENASE 5 GM (UD JAR) TOP (08:14)
[2019-01-12] MEDS: HEPARIN 5,000 UNIT/1 ML VIAL SC ×2 (08:14→20:54)
[2019-01-12] MEDS: AMIODARONE 200 MG TAB PO (08:16)
[2019-01-12] MEDS: FERROUS SULFATE (EC) 325 MG TAB PO ×2 (08:16→20:42)
[2019-01-12] MEDS: GABAPENTIN 300 MG CAP PO ×3 (08:16→20:42)
[2019-01-12] MEDS: ASPIRIN 81 MG TAB PO (08:16)
[2019-01-12] MEDS: FUROSEMIDE 20 MG INJ IV (08:17)
[2019-01-12] MEDS: SODIUM HYPOCHLORITE IRR (08:18)
[2019-01-12] MEDS: CEFTRIAXONE 1 GM/50 ML (PMX) 50 ML IVPB (14:14)
[2019-01-12] MEDS: TAMSULOSIN (SR) 0.4 MG CAP PO (20:42)
[2019-01-12] MEDS: ATORVASTATIN 80 MG TAB PO (20:43)
[2019-01-13] MEDS: VANCOMYCIN 750 MG (PMX) 250 ML IVPB ×2 (00:35→13:34)
[2019-01-13] MEDS: ACCU-CHEK XX (02:00)
[2019-01-13 05:32] LABS: ADD MAN DIFF? NO
[2019-01-13 05:41] LABS: ABNORMAL IP MESSAGE 1; BASOPHILS % 0.7 % (0.0-2.0); EOSINOPHILS # 0.1 10^3/ul (0.0-0.5); EOSINOPHILS % 1.5 % (0.0-7.0); HEMATOCRIT 26.2 % (42.0-52.0); LYMPHOCYTES # 1.1 10^3/ul (0.8-2.9); LYMPHOCYTES % 17.7 % (15.0-51.0); MEAN CORPUSCULAR HEMOGLOBIN 28.7 pg (29.0-33.0); MEAN CORPUSCULAR HGB CONC 30.5 g/dl (32.0-37.0); MEAN CORPUSCULAR VOLUME 93.9 fl (82.0-101.0); MEAN PLATELET VOLUME 10.1 fl (7.4-10.4); MONOCYTE # 0.5 10^3/ul (0.3-0.9); MONOCYTES % 8.2 % (0.0-11.0); NEUTROPHIL # 4.2 10^3/ul (1.6-7.5); NEUTROPHILS % 70.6 % (39.0-77.0); NUCLEATED RED BLOOD CELLS% 0.5 /100WBC (0.0-0.0); PLATELET COUNT 90 10^3/UL (140-415); POSITIVE DIFF @See below; RED BLOOD COUNT 2.79 10^6/ul (4.70-6.10); RED CELL DISTRIBUTION WIDTH 19.8 % (11.5-14.5)
[2019-01-13 05:41] LABS: WHITE BLOOD COUNT 5.9 10^3/ul (4.8-10.8)
[2019-01-13] MEDS: PANTOPRAZOLE (EC) 40 MG TAB PO (05:48)
[2019-01-13 06:14] LABS: ANION GAP 6 (5-13); BLOOD UREA NITROGEN 25 mg/dl (7-20); CALCIUM 8.5 mg/dl (8.4-10.2); CARBON DIOXIDE 27 mmol/L (21-31); CHLORIDE 110 mmol/L (97-110); CREATININE 1.31 mg/dl (0.61-1.24); Estimated GFR 57 mL/min (>60); GLUCOSE 180 mg/dl (70-220); POTASSIUM 4.1 mmol/L (3.5-5.1); SODIUM 143 mmol/L (135-144)
[2019-01-13] MEDS: LEVOTHYROXINE 50 MCG TAB PO (07:08)
[2019-01-13] MEDS: INSULIN GLARGINE [LANTus] (100 UNITS/ML) SYG SC (08:25)
[2019-01-13] MEDS: INSULIN ASPART [NOVOLOG] 3 ML PEN SC ×7 (08:26→21:19)
[2019-01-13] MEDS: COLLAGENASE 5 GM (UD JAR) TOP (08:28)
[2019-01-13] MEDS: FERROUS SULFATE (EC) 325 MG TAB PO ×2 (08:29→21:06)
[2019-01-13] MEDS: ASPIRIN 81 MG TAB PO (08:37)
[2019-01-13] MEDS: GABAPENTIN 300 MG CAP PO ×3 (08:37→21:06)
[2019-01-13] MEDS: FUROSEMIDE 20 MG INJ IV (08:38)
[2019-01-13] MEDS: HEPARIN 5,000 UNIT/1 ML VIAL SC ×2 (08:39→21:18)
[2019-01-13] MEDS: SODIUM HYPOCHLORITE IRR (08:40)
[2019-01-13] MEDS: AMIODARONE 200 MG TAB PO (09:00)
[2019-01-13 12:51] LABS: VANCOMYCIN,TROUGH 16.1 ug/ml (10.0-20.0)
[2019-01-13] MEDS: CIPROFLOXACIN 500 MG TAB PO (17:38)
[2019-01-13] MEDS: TAMSULOSIN (SR) 0.4 MG CAP PO (21:06)
[2019-01-13] MEDS: ATORVASTATIN 80 MG TAB PO (21:06)
[2019-01-14] MEDS: VANCOMYCIN 750 MG (PMX) 250 ML IVPB ×2 (01:02→12:04)
[2019-01-14] MEDS: ACCU-CHEK XX (02:00)
[2019-01-14] MEDS: CIPROFLOXACIN 500 MG TAB PO ×2 (05:24→17:07)
[2019-01-14] MEDS: PANTOPRAZOLE (EC) 40 MG TAB PO (05:24)
[2019-01-14 05:55] LABS: ADD MAN DIFF? NO
[2019-01-14 06:06] LABS: BASOPHILS % 0.7 % (0.0-2.0); EOSINOPHILS # 0.1 10^3/ul (0.0-0.5); EOSINOPHILS % 1.2 % (0.0-7.0); HEMATOCRIT 26.9 % (42.0-52.0); HEMOGLOBIN 8.2 g/dl (14.0-18.0); LYMPHOCYTES % 16.8 % (15.0-51.0); MEAN CORPUSCULAR HEMOGLOBIN 28.9 pg (29.0-33.0); MEAN CORPUSCULAR HGB CONC 30.5 g/dl (32.0-37.0); MEAN CORPUSCULAR VOLUME 94.7 fl (82.0-101.0); MEAN PLATELET VOLUME 10.2 fl (7.4-10.4); MONOCYTE # 0.5 10^3/ul (0.3-0.9); MONOCYTES % 8.1 % (0.0-11.0); NEUTROPHIL # 4.2 10^3/ul (1.6-7.5); NEUTROPHILS % 71.7 % (39.0-77.0); NUCLEATED RED BLOOD CELLS% 0.3 /100WBC (0.0-0.0); PLATELET COUNT 101 10^3/UL (140-415); RED BLOOD COUNT 2.84 10^6/ul (4.70-6.10); RED CELL DISTRIBUTION WIDTH 19.8 % (11.5-14.5)
[2019-01-14 06:06] LABS: WHITE BLOOD COUNT 5.8 10^3/ul (4.8-10.8)
[2019-01-14 06:22] LABS: ANION GAP 4 (5-13); BLOOD UREA NITROGEN 23 mg/dl (7-20); CALCIUM 8.4 mg/dl (8.4-10.2); CARBON DIOXIDE 28 mmol/L (21-31); CHLORIDE 110 mmol/L (97-110); CREATININE 1.12 mg/dl (0.61-1.24); Estimated GFR > 60 mL/min (>60); GLUCOSE 230 mg/dl (70-220); POTASSIUM 4.2 mmol/L (3.5-5.1); SODIUM 142 mmol/L (135-144)
[2019-01-14] MEDS: HEPARIN 5,000 UNIT/1 ML VIAL SC (08:15)
[2019-01-14] MEDS: INSULIN GLARGINE [LANTus] (100 UNITS/ML) SYG SC (08:16)
[2019-01-14] MEDS: INSULIN ASPART [NOVOLOG] 3 ML PEN SC ×6 (08:17→17:06)
[2019-01-14] MEDS: ASPIRIN 81 MG TAB PO (08:26)
[2019-01-14] MEDS: GABAPENTIN 300 MG CAP PO ×2 (08:26→12:04)
[2019-01-14] MEDS: FERROUS SULFATE (EC) 325 MG TAB PO (08:26)
[2019-01-14] MEDS: LEVOTHYROXINE 50 MCG TAB PO (08:27)
[2019-01-14] MEDS: AMIODARONE 200 MG TAB PO (08:28)
[2019-01-14] MEDS: SODIUM HYPOCHLORITE IRR (08:29)
[2019-01-14] MEDS: COLLAGENASE 5 GM (UD JAR) TOP (08:29)
[2019-01-14] MEDS: FUROSEMIDE 20 MG INJ IV (08:29)
[2019-01-15] MEDS ORDERED: INSULIN GLARGINE [LANTus] (100 UNITS/ML) SYG SC (08:00)
== END 2019-01-14 19:20 | disposition home health service (06) | DRG 264 ==
LOC: E/R 18:17 → PP2 22:52
PROC: 0JBQ0ZZ Excision of Right Foot Subcutaneous Tissue and Fascia, Open Approach (ICD-10-PCS; 2019-01-10)
PROC: 02HV33Z Insertion of Infusion Device into Superior Vena Cava, Percutaneous Approach (ICD-10-PCS; principal; 2019-01-11)
PROC: B548ZZA Ultrasonography of Superior Vena Cava, Guidance (ICD-10-PCS; 2019-01-11)
DX: E11.52 Type 2 diabetes mellitus with diabetic peripheral angiopathy with gangrene (principal); I50.23 Acute on chronic systolic (congestive) heart failure; I13.0 Hypertensive heart and chronic kidney disease with heart failure and stage 1 through stage 4 chronic kidney disease, or unspecified chronic kidney disease; I42.9 Cardiomyopathy, unspecified; M86.8X7 Other osteomyelitis, ankle and foot; N17.9 Acute kidney failure, unspecified; E11.621 Type 2 diabetes mellitus with foot ulcer; E11.21 Type 2 diabetes mellitus with diabetic nephropathy; E11.40 Type 2 diabetes mellitus with diabetic neuropathy, unspecified; E11.22 Type 2 diabetes mellitus with diabetic chronic kidney disease; I48.0 Paroxysmal atrial fibrillation; E78.5 Hyperlipidemia, unspecified; N18.9 Chronic kidney disease, unspecified; D50.9 Iron deficiency anemia, unspecified; I25.10 Atherosclerotic heart disease of native coronary artery without angina pectoris; E66.9 Obesity, unspecified; Z68.27 Body mass index [BMI] 27.0-27.9, adult; Z79.4 Long term (current) use of insulin; Z79.82 Long term (current) use of aspirin; Z89.422 Acquired absence of other left toe(s)
CPT/HCPCS: 36569; 71045; 73630; 73718; 76937; 80048; 80053; 80061; 80202; 81001; 81003; 82150; 82550; 82553; 82570; 82962; 83036; 83605; 83735; 84100; 84155; 84300; 84484; 85025; 85610; 85651; 85730; 86140; 87040-91; 87086; 93005; 93923; 96361; 96374; 96375; 99285-25

== ENCOUNTER 2019-02-27 21:17 | Emergency (ER) | payer MEDICARE, OTHER, MEDICAID ==
[2019-02-27 22:06] LABS: ADD MAN DIFF? NO
[2019-02-27] MEDS: SOD CHLORIDE 0.9% 500 ML IV (22:09)
[2019-02-27] MEDS: ONDANSETRON 4 MG INJ IV (22:09)
[2019-02-27 22:11] LABS: ABNORMAL IP MESSAGE 1; HEMOGLOBIN 9.2 g/dl (14.0-18.0); MEAN CORPUSCULAR HEMOGLOBIN 29.4 pg (29.0-33.0); MEAN CORPUSCULAR HGB CONC 31.7 g/dl (32.0-37.0); MEAN CORPUSCULAR VOLUME 92.7 fl (82.0-101.0); MEAN PLATELET VOLUME 11.2 fl (7.4-10.4); PLATELET COUNT 55 10^3/UL (140-415); POSITIVE DIFF @See below; RED BLOOD COUNT 3.13 10^6/ul (4.70-6.10)
[2019-02-27 22:11] LABS: WHITE BLOOD COUNT 5.9 10^3/ul (4.8-10.8)
[2019-02-27 22:27] LABS: ALANINE AMINOTRANSFERASE 84 IU/L (13-69); ALBUMIN 3.6 g/dl (3.3-4.9); ALBUMIN/GLOBULIN RATIO 1.09; ALKALINE PHOSPHATASE 155 IU/L (42-121); ANION GAP 10 (5-13); ASPARTATE AMINO TRANSFERASE 54 IU/L (15-46); BILIRUBIN,INDIRECT 0.6 mg/dl (0-1.1); BILIRUBIN,TOTAL 0.6 mg/dl (0.2-1.3); BLOOD UREA NITROGEN 26 mg/dl (7-20); CALCIUM 8.4 mg/dl (8.4-10.2); CARBON DIOXIDE 24 mmol/L (21-31); CHLORIDE 109 mmol/L (97-110); CREATININE 1.33 mg/dl (0.61-1.24); Estimated GFR 56 mL/min (>60); GLUCOSE 203 mg/dl (70-220); LIPASE 120 U/L (23-300); POTASSIUM 4.8 mmol/L (3.5-5.1); SODIUM 143 mmol/L (135-144); TOTAL PROTEIN 6.9 g/dl (6.1-8.1)
[2019-02-27 22:45] LABS: ANISOCYTOSIS 2+ (0-0); EOSINOPHILS % (M) 1 % (0-7); LYMPHOCYTES #M 1.5 10^3/ul (0.8-2.9); LYMPHOCYTES % (M) 26 % (15-51); MICROCYTOSIS 2+ (0-0); MONOCYTE #M 0.1 10^3/ul (0.3-0.9); MONOCYTES % (M) 3 % (0-11); OVALOCYTES 1+ (0-0); PLATELET ESTIMATE DECREASED; POIKILOCYTOSIS 3+ (0-0); POLYCHROMASIA 1+ (0-0); SEGMENTED NEUTROPHILS (M) % 70 % (39-77); SMUDGE%M 2 % (0-0)
[2019-02-27 23:06] LABS: ADD UMIC YES; UR ASCORBIC ACID NEGATIVE (NEGATIVE); UR BILIRUBIN (Dip) NEGATIVE (NEGATIVE); UR BLOOD (Dip) 2+ mg/dL (NEGATIVE); UR CLARITY SLIGHTLY CLOUDY (CLEAR); UR COLOR YELLOW (YELLOW); UR GLUCOSE (Dip) 2+ mg/dL (NEGATIVE); UR HYALINE CAST MODERATE /HPF (NONE SEEN); UR KETONES (Dip) NEGATIVE (NEGATIVE); UR LEUKOCYTE ESTERASE (Dip) NEGATIVE Leu/ul (NEGATIVE); UR MUCUS FEW /HPF (NONE SEEN); UR NITRITE (Dip) NEGATIVE (NEGATIVE); UR RBC 1 /HPF (0-5); UR SPECIFIC GRAVITY (Dip) 1.023 (1.003-1.030); UR TOTAL PROTEIN (Dip) 2+ mg/dl (NEGATIVE); UR UROBILINOGEN (Dip) 1+ mg/dL (NEGATIVE); UR WBC 3 /HPF (0-5)
== END 2019-02-28 00:41 | disposition home or self-care (01) ==
LOC: E/R 02-28 00:41
DX: A04.9 Bacterial intestinal infection, unspecified (principal); E11.9 Type 2 diabetes mellitus without complications; I10 Essential (primary) hypertension; Z98.61 Coronary angioplasty status; Z79.4 Long term (current) use of insulin; Z79.82 Long term (current) use of aspirin
CPT/HCPCS: 36415; 71045; 74176; 80053; 81001; 83690; 84484; 85025; 93005; 96374; 99285-25

== ENCOUNTER 2019-03-21 14:52 | Inpatient (IN) | payer MEDICARE, MEDICAID ==
[2019-03-21] MEDS ORDERED: SODIUM CHLORIDE 0.9% 1L BAG IV* (15:09)
[2019-03-21] MEDS: ONDANSETRON 4 MG INJ IV ×2 (15:41→19:32)
[2019-03-21] MEDS: SOD CHLORIDE 0.9% 730 ML IV (15:42)
[2019-03-21] MEDS: CEFEPIME 2GM/50 ML (PMX) 50 ML IVPB (15:42)
[2019-03-21 15:43] LABS: ABNORMAL IP MESSAGE 1; HEMATOCRIT 25.1 % (42.0-52.0); HEMOGLOBIN 8.3 g/dl (14.0-18.0); MEAN CORPUSCULAR HEMOGLOBIN 28.7 pg (29.0-33.0); MEAN CORPUSCULAR HGB CONC 33.1 g/dl (32.0-37.0); MEAN CORPUSCULAR VOLUME 86.9 fl (82.0-101.0); PLATELET COUNT 71 10^3/UL (140-415); POSITIVE DIFF @See below; RED BLOOD COUNT 2.89 10^6/ul (4.70-6.10); RED CELL DISTRIBUTION WIDTH 15.9 % (11.5-14.5)
[2019-03-21 15:45] LABS: ADD MAN DIFF? YES
[2019-03-21 15:56] LABS: HEMOGLOBIN A1C 7.8 % (0-5.9)
[2019-03-21 16:01] LABS: INR 1.11; PROTIME 14.4 Sec (11.9-14.9); PT RATIO 1.1
[2019-03-21 16:02] LABS: PARTIAL THROMBOPLASTIN TIME 28.7 Sec (23.0-35.0)
[2019-03-21 16:18] LABS: ALANINE AMINOTRANSFERASE 41 IU/L (13-69); ALBUMIN 3.8 g/dl (3.3-4.9); ALBUMIN/GLOBULIN RATIO 1.15; ALKALINE PHOSPHATASE 183 IU/L (42-121); ANION GAP 15 (5-13); ASPARTATE AMINO TRANSFERASE 43 IU/L (15-46); BILIRUBIN,INDIRECT 1.2 mg/dl (0-1.1); BILIRUBIN,TOTAL 1.2 mg/dl (0.2-1.3); BLOOD UREA NITROGEN 18 mg/dl (7-20); CALCIUM 8.9 mg/dl (8.4-10.2); CARBON DIOXIDE 24 mmol/L (21-31); CHLORIDE 99 mmol/L (97-110); CREATININE 1.63 mg/dl (0.61-1.24); Estimated GFR 44 mL/min (>60); GLUCOSE 178 mg/dl (70-220); LIPASE 294 U/L (23-300); POTASSIUM 4.3 mmol/L (3.5-5.1); SODIUM 138 mmol/L (135-144); TOTAL PROTEIN 7.1 g/dl (6.1-8.1)
[2019-03-21 16:25] LABS: PHOSPHORUS 3.5 mg/dl (2.5-4.9)
[2019-03-21 16:25] LABS: MAGNESIUM 2.2 mg/dl (1.7-2.5)
[2019-03-21 16:26] LABS: TROPONIN-I < 0.012 ng/ml (0.000-0.120)
[2019-03-21 16:34] LABS: PROCALCITONIN 0.18 ng/mL (0.00-0.10)
[2019-03-21 16:48] LABS: ACANTHOCYTES 1+ (0-0); ANISOCYTOSIS 1+ (0-0); BAND NEUTROPHILS #M 0.1 10^3/ul (0.0-0.6); BAND NEUTROPHILS % (M) 3 % (0-4); BASOPHILS % (M) 1 % (0-2); BURR CELLS 1+ (0-0); EOSINOPHILS % (M) 2 % (0-7); GIANT THROMBO% (M) 1 % (0-0); LYMPHOCYTES % (M) 41 % (15-51); MICROCYTOSIS 1+ (0-0); MONOCYTE #M 0.3 10^3/ul (0.3-0.9); MONOCYTES % (M) 7 % (0-11); OVALOCYTES 1+ (0-0); PLATELET ESTIMATE DECREASED; POIKILOCYTOSIS 2+ (0-0); POLYCHROMASIA 1+ (0-0); SEG NEUT #M 2.4 10^3/ul (1.6-7.5); SEGMENTED NEUTROPHILS (M) % 47 % (39-77); SMUDGE%M 4 % (0-0)
[2019-03-21] MEDS: VANCOMYCIN 1 GM (PMX) 250 ML IVPB (17:11)
[2019-03-21] MEDS ORDERED: ACETAMINOPHEN 325 MG TAB PO ×2 (17:30→18:00)
[2019-03-21] MEDS ORDERED: ONDANSETRON 4 MG INJ IV (17:30)
[2019-03-21] MEDS ORDERED: DOCUSATE SODIUM 100 MG CAP PO (18:00)
[2019-03-21] MEDS ORDERED: MAGNESIUM HYDROXIDE 30ML CUP PO (18:00)
[2019-03-21] MEDS ORDERED: NACL 0.9% 3 ML SYG IV (18:00)
[2019-03-21] MEDS: INSULIN ASPART [NOVOLOG] 3 ML PEN SC ×2 (18:00→21:00)
[2019-03-21] MEDS ORDERED: VANCOMYCIN IV PER PHARMACY XX (18:30)
[2019-03-21 19:42] LABS: LACTIC ACID 6.3 mmol/L (0.5-2.0)
[2019-03-21 20:39] LABS: LACTIC ACID 5.7 mmol/L (0.5-2.0)
[2019-03-21 20:43] LABS: SODIUM,URINE RANDOM 130 mmol/L (30-90)
[2019-03-21 20:44] LABS: UR BILIRUBIN (Dip) NEGATIVE (NEGATIVE); UR BLOOD (Dip) 1+ mg/dL (NEGATIVE); UR CLARITY CLEAR (CLEAR); UR COLOR YELLOW (YELLOW); UR GLUCOSE (Dip) 1+ mg/dL (NEGATIVE); UR KETONES (Dip) TRACE mg/dL (NEGATIVE); UR LEUKOCYTE ESTERASE (Dip) NEGATIVE Leu/ul (NEGATIVE); UR NITRITE (Dip) NEGATIVE (NEGATIVE); UR SPECIFIC GRAVITY (Dip) 1.014 (1.003-1.030); UR TOTAL PROTEIN (Dip) 1+ mg/dl (NEGATIVE); UR UROBILINOGEN (Dip) NEGATIVE (NEGATIVE)
[2019-03-21 20:45] LABS: ADD UMIC YES; UR ASCORBIC ACID NEGATIVE (NEGATIVE); UR BACTERIA FEW /HPF (NONE SEEN); UR HYALINE CAST FEW /HPF (NONE SEEN); UR MUCUS FEW /HPF (NONE SEEN); UR RBC 1 /HPF (0-5); UR WBC 2 /HPF (0-5)
[2019-03-21 20:45] LABS: CREATININE,URINE RANDOM 84.95 mg/dl (20-370)
[2019-03-21] MEDS: GABAPENTIN 300 MG CAP PO (22:29)
[2019-03-21] MEDS: TAMSULOSIN (SR) 0.4 MG CAP PO (22:29)
[2019-03-21] MEDS: ATORVASTATIN 80 MG TAB PO (22:29)
[2019-03-21] MEDS: DEXTROSE 5%-0.45% NACL 1,000 ML IV (22:30)
[2019-03-21] MEDS: HEPARIN 5,000 UNIT/1 ML VIAL SC (22:41)
[2019-03-22] MEDS: SOD CHLORIDE 0.9% IVPB (00:46)
[2019-03-22] MEDS: DAPTOMYCIN IVPB (00:46)
[2019-03-22] MEDS ORDERED: GLUCOSE GEL 15 GRAM TUBE BUCCAL (05:30)
[2019-03-22] MEDS ORDERED: GLUCAGON 1 MG INJ IM (05:30)
[2019-03-22] MEDS ORDERED: DEXTROSE 50% 50 ML SYRINGE IV (05:30)
[2019-03-22] MEDS ORDERED: GLUCOSE GEL 15 GRAM TUBE PO ×2 (05:30)
[2019-03-22] MEDS ORDERED: INSULIN ASPART [NOVOLOG] 3 ML PEN SC (06:00)
[2019-03-22] MEDS: PANTOPRAZOLE (EC) 40 MG TAB PO (06:00)
[2019-03-22] MEDS: LEVOTHYROXINE 50 MCG TAB PO (06:28)
[2019-03-22] MEDS: INSULIN ASPART [NOVOLOG] 3 ML PEN SC ×5 (07:00→21:00)
[2019-03-22 07:08] LABS: ADD MAN DIFF? NO
[2019-03-22 07:12] LABS: WHITE BLOOD COUNT 3.4 10^3/ul (4.8-10.8)
[2019-03-22 07:12] LABS: ABNORMAL IP MESSAGE 1; BASOPHILS % 0.6 % (0.0-2.0); EOSINOPHILS # 0.1 10^3/ul (0.0-0.5); EOSINOPHILS % 3.9 % (0.0-7.0); HEMATOCRIT 18.3 % (42.0-52.0); LYMPHOCYTES # 1.5 10^3/ul (0.8-2.9); LYMPHOCYTES % 45.1 % (15.0-51.0); MEAN CORPUSCULAR HEMOGLOBIN 28.8 pg (29.0-33.0); MEAN CORPUSCULAR HGB CONC 33.3 g/dl (32.0-37.0); MEAN CORPUSCULAR VOLUME 86.3 fl (82.0-101.0); MONOCYTE # 0.6 10^3/ul (0.3-0.9); MONOCYTES % 18.2 % (0.0-11.0); NEUTROPHIL # 1.1 10^3/ul (1.6-7.5); NEUTROPHILS % 32.2 % (39.0-77.0); PLATELET COUNT 40 10^3/UL (140-415); POSITIVE DIFF @See below; RED BLOOD COUNT 2.12 10^6/ul (4.70-6.10)
[2019-03-22 07:34] LABS: ALANINE AMINOTRANSFERASE 41 IU/L (13-69); ALBUMIN 2.6 g/dl (3.3-4.9); ALBUMIN/GLOBULIN RATIO 0.96; ALKALINE PHOSPHATASE 121 IU/L (42-121); ANION GAP 7 (5-13); ASPARTATE AMINO TRANSFERASE 25 IU/L (15-46); BLOOD UREA NITROGEN 15 mg/dl (7-20); CALCIUM 7.9 mg/dl (8.4-10.2); CARBON DIOXIDE 29 mmol/L (21-31); CHLORIDE 102 mmol/L (97-110); CREATININE 1.29 mg/dl (0.61-1.24); Estimated GFR 58 mL/min (>60); GLUCOSE 163 mg/dl (70-220); MAGNESIUM 2.1 mg/dl (1.7-2.5); POTASSIUM 4.7 mmol/L (3.5-5.1); SODIUM 138 mmol/L (135-144); TOTAL PROTEIN 5.3 g/dl (6.1-8.1)
[2019-03-22 07:46] LABS: HEMOGLOBIN 6.1 g/dl (14.0-18.0)
[2019-03-22 08:35] LABS: ABNORMAL IP MESSAGE 1; BASOPHILS % 0.8 % (0.0-2.0); EOSINOPHILS # 0.1 10^3/ul (0.0-0.5); EOSINOPHILS % 3.8 % (0.0-7.0); LYMPHOCYTES # 1.1 10^3/ul (0.8-2.9); LYMPHOCYTES % 42.9 % (15.0-51.0); MEAN CORPUSCULAR HEMOGLOBIN 29.5 pg (29.0-33.0); MEAN CORPUSCULAR HGB CONC 34.4 g/dl (32.0-37.0); MEAN CORPUSCULAR VOLUME 85.7 fl (82.0-101.0); MONOCYTE # 0.5 10^3/ul (0.3-0.9); MONOCYTES % 17.7 % (0.0-11.0); NEUTROPHIL # 0.9 10^3/ul (1.6-7.5); NEUTROPHILS % 34.8 % (39.0-77.0); PLATELET COUNT 37 10^3/UL (140-415); POSITIVE DIFF @See below; RED CELL DISTRIBUTION WIDTH 15.8 % (11.5-14.5)
[2019-03-22 08:35] LABS: WHITE BLOOD COUNT 2.7 10^3/ul (4.8-10.8)
[2019-03-22 08:36] LABS: ADD MAN DIFF? NO
[2019-03-22 08:51] LABS: CREATINE KINASE 64 IU/L (23-200)
[2019-03-22 08:54] LABS: HEMOGLOBIN 6.2 g/dl (14.0-18.0)
[2019-03-22 09:01] LABS: ACANTHOCYTES 1+ (0-0); ANISOCYTOSIS 2+ (0-0); BAND NEUTROPHILS #M 0.2 10^3/ul (0.0-0.6); BAND NEUTROPHILS % (M) 7 % (0-4); EOSINOPHILS % (M) 2 % (0-7); HYPOCHROMASIA 2+ (0-0); LYMPHOCYTES #M 1.4 10^3/ul (0.8-2.9); LYMPHOCYTES % (M) 44 % (15-51); MICROCYTOSIS 2+ (0-0); MONOCYTE #M 0.1 10^3/ul (0.3-0.9); MONOCYTES % (M) 4 % (0-11); PLATELET ESTIMATE DECREASED; POIKILOCYTOSIS 2+ (0-0); POLYCHROMASIA 1+ (0-0); RBC MORPHOLOGY COMMENT @See below; SEG NEUT #M 1.5 10^3/ul (1.6-7.5); SEGMENTED NEUTROPHILS (M) % 43 % (39-77); SMUDGE%M 15 % (0-0); TOXIC GRANULATION 1+ (0-0); WBC MORPHOLOGY COMMENT @See below
[2019-03-22 09:44] LABS: MODE ROOM AIR; MetHgb Venous 0.5 %; Sample Type Blood venous; Site VENOUS LINE; Venous COHb 0.1 %; Venous Oxygen Sat 63.4 mmHG (55.0-75.0); Venous Total Hemglobin 8.4 g/dl
[2019-03-22 10:22] LABS: % IRON SATURATION 71 % SAT (22-52); IRON 116 ug/dl (35-150); TOTAL IRON BINDING CAPACITY 164 ug/dl (241-421)
[2019-03-22 10:52] LABS: ERYTHROCYTE SEDIMENTATION RATE 20 mm/Hr (0-20)
[2019-03-22 11:05] LABS: IMMEDIATE SPIN CROSSMATCH 1 2
[2019-03-22 11:18] LABS: C-REACTIVE PROTEIN 0.6 mg/dl (0.0-0.9)
[2019-03-22] MEDS: ISOSORBIDE MONONITRATE(SR)30 MG TAB PO (12:30)
[2019-03-22] MEDS: AMIODARONE 200 MG TAB PO (12:30)
[2019-03-22] MEDS: INSULIN GLARGINE [LANTus] (100 UNITS/ML) SYG SC (12:30)
[2019-03-22] MEDS: ASPIRIN 81 MG TAB PO (12:30)
[2019-03-22] MEDS: SOD FERRIC GLUC COMPLX 125 MG in SOD CHLORIDE 0.9% 100 ML IVPB (12:34)
[2019-03-22] MEDS: DEXTROSE 5%-0.45% NACL 1,000 ML IV (13:32)
[2019-03-22 14:00] LABS: PROCALCITONIN 0.14 ng/mL (0.00-0.10)
[2019-03-22] MEDS: MAGNESIUM CITRATE 300 ML BTL PO (14:00)
[2019-03-22] MEDS ORDERED: VANCOMYCIN HCL 1.25 GM in SOD CHLORIDE 0.9% 250 ML IVPB (14:00)
[2019-03-22] MEDS: LACTULOSE 30ML CUP PO ×3 (15:28→21:21)
[2019-03-22 18:34] LABS: TYPE AND SCREEN 1
[2019-03-22] MEDS: CEFTRIAXONE 1 GM/50 ML (PMX) 50 ML IVPB (18:52)
[2019-03-22] MEDS: GABAPENTIN 300 MG CAP PO (21:21)
[2019-03-22] MEDS: TAMSULOSIN (SR) 0.4 MG CAP PO (21:21)
[2019-03-22] MEDS: ATORVASTATIN 80 MG TAB PO (21:21)
[2019-03-23] MEDS: DAPTOMYCIN IVPB ×2 (00:54→23:40)
[2019-03-23] MEDS: SOD CHLORIDE 0.9% IVPB ×2 (00:54→23:40)
[2019-03-23] MEDS: LACTULOSE 30ML CUP PO (00:58)
[2019-03-23] MEDS: INSULIN ASPART [NOVOLOG] 3 ML PEN SC ×6 (01:00→21:00)
[2019-03-23] MEDS: PANTOPRAZOLE (EC) 40 MG TAB PO (06:26)
[2019-03-23] MEDS: LEVOTHYROXINE 50 MCG TAB PO (06:26)
[2019-03-23 06:52] LABS: ADD MAN DIFF? NO
[2019-03-23 06:57] LABS: ABNORMAL IP MESSAGE 1; BASOPHILS % 0.9 % (0.0-2.0); EOSINOPHILS # 0.1 10^3/ul (0.0-0.5); HEMATOCRIT 23.9 % (42.0-52.0); HEMOGLOBIN 8.2 g/dl (14.0-18.0); LYMPHOCYTES # 0.9 10^3/ul (0.8-2.9); LYMPHOCYTES % 27.7 % (15.0-51.0); MEAN CORPUSCULAR HEMOGLOBIN 29.4 pg (29.0-33.0); MEAN CORPUSCULAR HGB CONC 34.3 g/dl (32.0-37.0); MEAN CORPUSCULAR VOLUME 85.7 fl (82.0-101.0); MEAN PLATELET VOLUME 10.2 fl (7.4-10.4); MONOCYTE # 0.7 10^3/ul (0.3-0.9); NEUTROPHIL # 1.5 10^3/ul (1.6-7.5); NEUTROPHILS % 46.1 % (39.0-77.0); PLATELET COUNT 63 10^3/UL (140-415); POSITIVE DIFF @See below; RED BLOOD COUNT 2.79 10^6/ul (4.70-6.10); RED CELL DISTRIBUTION WIDTH 15.6 % (11.5-14.5)
[2019-03-23 06:57] LABS: WHITE BLOOD COUNT 3.3 10^3/ul (4.8-10.8)
[2019-03-23 07:15] LABS: ANION GAP 6 (5-13); BLOOD UREA NITROGEN 10 mg/dl (7-20); CALCIUM 8.2 mg/dl (8.4-10.2); CARBON DIOXIDE 29 mmol/L (21-31); CHLORIDE 107 mmol/L (97-110); CREATININE 1.04 mg/dl (0.61-1.24); GLUCOSE 90 mg/dl (70-220); MAGNESIUM 2.3 mg/dl (1.7-2.5); PHOSPHORUS 3.1 mg/dl (2.5-4.9); POTASSIUM 3.6 mmol/L (3.5-5.1); SODIUM 142 mmol/L (135-144)
[2019-03-23 07:40] LABS: LACTIC ACID 2.4 mmol/L (0.5-2.0)
[2019-03-23] MEDS: ASPIRIN 81 MG TAB PO (08:21)
[2019-03-23] MEDS: AMIODARONE 200 MG TAB PO (08:22)
[2019-03-23] MEDS: ISOSORBIDE MONONITRATE(SR)30 MG TAB PO (08:22)
[2019-03-23] MEDS: DAKINS 0.0125%(1/40) 473 ML SOLUTION TP (08:31)
[2019-03-23] MEDS: COLLAGENASE 5 GM (UD JAR) TOP (08:31)
[2019-03-23] MEDS: INSULIN GLARGINE [LANTus] (100 UNITS/ML) SYG SC (08:38)
[2019-03-23] MEDS: DEXTROSE 5%-0.45% NACL 1,000 ML IV (08:39)
[2019-03-23] MEDS ORDERED: GLYCOPYRROLATE 0.4 MG INJ (11:14)
[2019-03-23] MEDS: LIDOCAINE 100 MG SYRINGE (13:07)
[2019-03-23] MEDS: PROPOFOL 40 ML (13:07)
[2019-03-23 15:55] LABS: B-TYPE NATRIURETIC PEPTIDE 1920 PG/ML (0-125)
[2019-03-23] MEDS: POTASSIUM CHLORIDE 50 ML IVPB (16:03)
[2019-03-23] MEDS: FUROSEMIDE 40 MG TAB PO (17:00)
[2019-03-23] MEDS: CEFTRIAXONE 1 GM/50 ML (PMX) 50 ML IVPB (18:02)
[2019-03-23] MEDS: DEXTROSE 50% 50 ML SYRINGE IV (18:03)
[2019-03-23] MEDS: GABAPENTIN 300 MG CAP PO (21:10)
[2019-03-23] MEDS: ATORVASTATIN 80 MG TAB PO (21:10)
[2019-03-23] MEDS: TAMSULOSIN (SR) 0.4 MG CAP PO (21:10)
[2019-03-24] MEDS: ACCU-CHEK XX (01:21)
[2019-03-24] MEDS: PANTOPRAZOLE (EC) 40 MG TAB PO (05:45)
[2019-03-24] MEDS: LEVOTHYROXINE 50 MCG TAB PO (06:01)
[2019-03-24] MEDS: INSULIN ASPART [NOVOLOG] 3 ML PEN SC ×4 (07:55→21:00)
[2019-03-24 08:11] LABS: ADD MAN DIFF? NO
[2019-03-24] MEDS: ASPIRIN 81 MG TAB PO (08:14)
[2019-03-24] MEDS: AMIODARONE 200 MG TAB PO (08:15)
[2019-03-24] MEDS: FUROSEMIDE 40 MG TAB PO (08:15)
[2019-03-24] MEDS: ISOSORBIDE MONONITRATE(SR)30 MG TAB PO (08:15)
[2019-03-24] MEDS: COLLAGENASE 5 GM (UD JAR) TOP (08:16)
[2019-03-24] MEDS: DAKINS 0.0125%(1/40) 473 ML SOLUTION TP (08:16)
[2019-03-24] MEDS: INSULIN GLARGINE [LANTus] (100 UNITS/ML) SYG SC (08:20)
[2019-03-24 08:22] LABS: ABNORMAL IP MESSAGE 1; BASOPHILS % 0.5 % (0.0-2.0); EOSINOPHILS # 0.1 10^3/ul (0.0-0.5); EOSINOPHILS % 1.2 % (0.0-7.0); HEMATOCRIT 25.1 % (42.0-52.0); HEMOGLOBIN 8.6 g/dl (14.0-18.0); LYMPHOCYTES # 1.5 10^3/ul (0.8-2.9); MEAN CORPUSCULAR HEMOGLOBIN 29.8 pg (29.0-33.0); MEAN CORPUSCULAR HGB CONC 34.3 g/dl (32.0-37.0); MEAN CORPUSCULAR VOLUME 86.9 fl (82.0-101.0); MEAN PLATELET VOLUME 10.8 fl (7.4-10.4); MONOCYTE # 1.6 10^3/ul (0.3-0.9); MONOCYTES % 23.5 % (0.0-11.0); NEUTROPHIL # 3.4 10^3/ul (1.6-7.5); NEUTROPHILS % 51.9 % (39.0-77.0); PLATELET COUNT 62 10^3/UL (140-415); POSITIVE DIFF @See below; RED BLOOD COUNT 2.89 10^6/ul (4.70-6.10); RED CELL DISTRIBUTION WIDTH 15.6 % (11.5-14.5)
[2019-03-24 08:22] LABS: WHITE BLOOD COUNT 6.6 10^3/ul (4.8-10.8)
[2019-03-24 08:44] LABS: ALBUMIN 2.8 g/dl (3.3-4.9); ANION GAP 6 (5-13); BLOOD UREA NITROGEN 6 mg/dl (7-20); CALCIUM 8.1 mg/dl (8.4-10.2); CARBON DIOXIDE 31 mmol/L (21-31); CHLORIDE 106 mmol/L (97-110); CREATININE 1.03 mg/dl (0.61-1.24); GLUCOSE 82 mg/dl (70-220); MAGNESIUM 2.1 mg/dl (1.7-2.5); PHOSPHORUS 2.4 mg/dl (2.5-4.9); SODIUM 143 mmol/L (135-144)
[2019-03-24 08:46] LABS: CHOL/HDL RATIO 2.9 RATIO; HDL CHOLESTEROL 23 mg/dl (28-71); LDL CHOLESTEROL,CALCULATED 31 mg/dl; TRIGLYCERIDES 68 mg/dl (0-149)
[2019-03-24 08:46] LABS: CHOLESTEROL 68 mg/dl (100-200)
[2019-03-24] MEDS: ONDANSETRON 4 MG INJ IV (12:04)
[2019-03-24] MEDS: CEFTRIAXONE 1 GM/50 ML (PMX) 50 ML IVPB (18:11)
[2019-03-24] MEDS: GABAPENTIN 300 MG CAP PO (21:00)
[2019-03-24] MEDS: TAMSULOSIN (SR) 0.4 MG CAP PO (21:01)
[2019-03-24] MEDS: ATORVASTATIN 80 MG TAB PO (21:01)
[2019-03-25] MEDS: DAPTOMYCIN IVPB (00:40)
[2019-03-25] MEDS: SOD CHLORIDE 0.9% IVPB (00:40)
[2019-03-25 03:51] LABS: OCCULT BLOOD STOOL POSITIVE (NEGATIVE)
[2019-03-25] MEDS: PANTOPRAZOLE (EC) 40 MG TAB PO (05:59)
[2019-03-25 06:02] LABS: ADD MAN DIFF? NO
[2019-03-25] MEDS: ONDANSETRON 4 MG INJ IV (06:02)
[2019-03-25 06:07] LABS: ABNORMAL IP MESSAGE 1; BASOPHILS % 0.7 % (0.0-2.0); EOSINOPHILS # 0.1 10^3/ul (0.0-0.5); EOSINOPHILS % 1.8 % (0.0-7.0); HEMATOCRIT 24.1 % (42.0-52.0); LYMPHOCYTES # 1.6 10^3/ul (0.8-2.9); LYMPHOCYTES % 26.3 % (15.0-51.0); MEAN CORPUSCULAR HGB CONC 33.2 g/dl (32.0-37.0); MEAN CORPUSCULAR VOLUME 87.3 fl (82.0-101.0); MEAN PLATELET VOLUME 11.1 fl (7.4-10.4); MONOCYTE # 1.6 10^3/ul (0.3-0.9); MONOCYTES % 26.6 % (0.0-11.0); NEUTROPHIL # 2.6 10^3/ul (1.6-7.5); NEUTROPHILS % 43.1 % (39.0-77.0); PLATELET COUNT 61 10^3/UL (140-415); POSITIVE DIFF @See below; RED BLOOD COUNT 2.76 10^6/ul (4.70-6.10); RED CELL DISTRIBUTION WIDTH 15.8 % (11.5-14.5)
[2019-03-25 06:32] LABS: ALBUMIN 2.7 g/dl (3.3-4.9); ANION GAP 5 (5-13); BLOOD UREA NITROGEN 7 mg/dl (7-20); CALCIUM 7.9 mg/dl (8.4-10.2); CARBON DIOXIDE 31 mmol/L (21-31); CHLORIDE 105 mmol/L (97-110); GLUCOSE 94 mg/dl (70-220); MAGNESIUM 1.8 mg/dl (1.7-2.5); PHOSPHORUS 1.5 mg/dl (2.5-4.9); POTASSIUM 3.2 mmol/L (3.5-5.1); SODIUM 141 mmol/L (135-144)
[2019-03-25] MEDS: INSULIN ASPART [NOVOLOG] 3 ML PEN SC ×3 (08:00→17:16)
[2019-03-25] MEDS: LEVOTHYROXINE 50 MCG TAB PO (08:20)
[2019-03-25] MEDS: ASPIRIN 81 MG TAB PO (08:21)
[2019-03-25] MEDS: ISOSORBIDE MONONITRATE(SR)30 MG TAB PO (08:21)
[2019-03-25] MEDS: FUROSEMIDE 40 MG TAB PO (08:22)
[2019-03-25] MEDS: AMIODARONE 200 MG TAB PO (08:23)
[2019-03-25] MEDS: INSULIN GLARGINE [LANTus] (100 UNITS/ML) SYG SC (08:25)
[2019-03-25] MEDS: COLLAGENASE 5 GM (UD JAR) TOP (08:26)
[2019-03-25] MEDS: METOPROLOL (XL) 25 MG TAB PO (08:26)
[2019-03-25] MEDS: POTASSIUM CHLORIDE (SR) 20 MEQ TAB PO (09:01)
[2019-03-25] MEDS: POTASSIUM PHOSPHATE 30 MM in SOD CHLORIDE 0.9% 250 ML IVPB (10:13)
[2019-03-25] MEDS: DAKINS 0.0125%(1/40) 473 ML SOLUTION TP (10:13)
== END 2019-03-25 17:50 | disposition home or self-care (01) | DRG 622 ==
LOC: E/R 14:52 → PP2 03-24 20:02 → TEL 17:32
PROC: 0JBQ0ZZ Excision of Right Foot Subcutaneous Tissue and Fascia, Open Approach (ICD-10-PCS; principal; 2019-03-23 12:20)
PROC: 0DB68ZX Excision of Stomach, Via Natural or Artificial Opening Endoscopic, Diagnostic (ICD-10-PCS; 2019-03-23 12:20)
PROC: 0DBM8ZX Excision of Descending Colon, Via Natural or Artificial Opening Endoscopic, Diagnostic (ICD-10-PCS; 2019-03-23 12:20)
PROC: 0DBN8ZX Excision of Sigmoid Colon, Via Natural or Artificial Opening Endoscopic, Diagnostic (ICD-10-PCS; 2019-03-23 12:20)
PROC: 30233N1 Transfusion of Nonautologous Red Blood Cells into Peripheral Vein, Percutaneous Approach (ICD-10-PCS; 2019-03-23 12:20)
PROC: 30233R1 Transfusion of Nonautologous Platelets into Peripheral Vein, Percutaneous Approach (ICD-10-PCS; 2019-03-23 12:20)
DX: E86.0 Dehydration (principal); D61.811 Other drug-induced pancytopenia; I50.32 Chronic diastolic (congestive) heart failure; I13.0 Hypertensive heart and chronic kidney disease with heart failure and stage 1 through stage 4 chronic kidney disease, or unspecified chronic kidney disease; M86.671 Other chronic osteomyelitis, right ankle and foot; N17.9 Acute kidney failure, unspecified; E11.621 Type 2 diabetes mellitus with foot ulcer; E11.69 Type 2 diabetes mellitus with other specified complication; D69.59 Other secondary thrombocytopenia; E11.22 Type 2 diabetes mellitus with diabetic chronic kidney disease; L97.519 Non-pressure chronic ulcer of other part of right foot with unspecified severity; T36.8X5A Adverse effect of other systemic antibiotics, initial encounter; R11.2 Nausea with vomiting, unspecified; N18.9 Chronic kidney disease, unspecified; I25.10 Atherosclerotic heart disease of native coronary artery without angina pectoris; D50.9 Iron deficiency anemia, unspecified; D63.8 Anemia in other chronic diseases classified elsewhere; K20.9 Esophagitis, unspecified; K31.7 Polyp of stomach and duodenum; K29.70 Gastritis, unspecified, without bleeding; K57.30 Diverticulosis of large intestine without perforation or abscess without bleeding; D12.4 Benign neoplasm of descending colon; D12.5 Benign neoplasm of sigmoid colon; Y92.019 Unspecified place in single-family (private) house as the place of occurrence of the external cause; Z79.4 Long term (current) use of insulin; Z79.82 Long term (current) use of aspirin; Z89.422 Acquired absence of other left toe(s); Z95.1 Presence of aortocoronary bypass graft; Z95.5 Presence of coronary angioplasty implant and graft
CPT/HCPCS: 36415; 36430; 71045; 73718; 74176; 76775; 80053; 80061; 80069; 81001; 82270; 82550; 82803; 82962; 83036; 83540; 83605; 83690; 83735; 83880; 84100; 84145; 84155; 84300; 84484; 85025; 85610; 85651; 85730; 86140; 86644; 86850; 86900; 86901; 86920; 86945; 87040-91; 87086; 88305; 88312; 93005; 93306; 96374; 96375; 97161; 97166; 99285-25